=== PATIENT | female | born 1950 | race American Indian/Alaskan Native ===

== ENCOUNTER 2016-12-09 06:03 | Day surgery (SDC) | payer MEDICARE ==
[~2016-12-09 06:03] MED LIST: ANCEF/STERILE WATER 2 GM/20 ML 2 GM/20 ML SYRINGE IV NR; NACL 0.9% 1000 ML 1,000 ML IV SCH; PEPCID PO NR
--- NOTE | 2016-12-09 06:57 | Anesthesia Consultation ---
Anesthesia Consult and Med Hx Date of service: 12/09/16 - Airway Anesthetic Teeth Evaluation: Edentulous ROM Head & Neck: Adequate Mental/Hyoid Distance: Adequate Mallampati Class: Class II Intubation Access Assessment: Probably Good - Pulmonary Exam CTA: Yes - Cardiac Exam Cardiac Exam: RRR - Pre-Operative Health Status ASA Pre-Surgery Classification: ASA3 Proposed Anesthetic Plan: MAC - Pulmonary Hx Smoking: Yes (1-2 PPD FROM 1969 NOW SINCE 1-2 CIG/DAY FORLAST 3YRS) Hx Asthma: No Hx Pneumonia: No Hx Sleep Apnea: No - Cardiovascular System Hx Hypertension: Yes (20+ YRS) - Central Nervous System Hx Seizures: No CVA: No Hx Psychiatric Problems: No - Endocrine Hx Renal Disease: Yes (CKD, dialysis via vas cath) Hx End Stage Renal Disease: Yes Hx Insulin Dependent Diabetes: Yes Hx Non-Insulin Dependent Diabetes: Yes - Hematic Hx Anemia: Yes - Other Systems Hx Cancer: Yes (endometrial)
--- NOTE | 2016-12-09 06:59 | Anesthesia Day of Surgery ---
Anesthesia Day of Surgery - Day of Surgery Patient Examined: Yes Patient H&P Reviewed: Yes Patient is NPO: Yes Beta Blockers: No Cardiac Clearance: No Pulmonary Clearance: No
[2016-12-09 07:17] LABS: Basophils % (Auto) 0.6 % (0.0-1.8); Eosinophils % (Auto) 1.8 % (0.0-4.3); Hematocrit 31.3 % (30.3-42.9); Hemoglobin 9.9 gm/dl (10.1-14.3); Mean Corpuscular HGB Conc 32 % (30-34); Mean Corpuscular Hemoglobin 30 pg (28-32); Mean Corpuscular Volume 94 fl (79-97); Platelet Count 159 K/mm3 (140-440); Red Blood Count 3.35 M/mm3 (3.65-5.03); Red Cell Distribution Width 15.9 % (13.2-15.2); White Blood Count 8.2 K/mm3 (4.5-11.0)
[2016-12-09] MEDS ORDERED: MARCAINE 0.5% INFILTRATI ONE ×2 (07:17→09:31)
[2016-12-09] MEDS ORDERED: HEPARIN 10,000 UNITS/10 ML ONE (07:17)
[2016-12-09] MEDS ORDERED: NACL 0.9% 500 ML 500 ML ONE (07:21)
[2016-12-09] MEDS ORDERED: XYLOCAINE 1%/ EPI 1:100,000 INFILTRATI ONE (07:21)
[2016-12-09 07:30] LABS: BUN/Creatinine Ratio 7.66; Chloride 105.9 mmol/L (98-107); Potassium 5.2 mmol/L (3.6-5.0)
[2016-12-09 07:32] LABS: INR 1.05 (0.87-1.13)
[2016-12-09] MEDS ORDERED: DIPRIVAN 10 MG/ML IV ONE (07:41)
[2016-12-09] MEDS ORDERED: XYLOCAINE MPF 2% ONE (07:41)
[2016-12-09] MEDS ORDERED: SUBLIMAZE ONE ×2 (07:41→09:16)
[2016-12-09] MEDS ORDERED: ePHEDrine SULFATE ONE (08:39)
[2016-12-09] MEDS ORDERED: HEPARIN 10,000 UNITS/10 ML 2,000 UNIT in NACL 0.9% 500 ML 500 ML IR ONE (09:32)
[2016-12-09] MEDS ORDERED: ZOFRAN ONE (09:36)
--- NOTE | 2016-12-09 09:48 | Short Stay Summary ---
Short Stay Documentation Date of service: 12/09/16 Narrative H&P: See H&P - History H&P: obtained from office - Allergies and Medications Current Medications: Allergies No Known Allergies Allergy (Verified 11/28/16 16:27) Home Medications Medication Instructions Recorded Confirmed Last Taken Type Amiodarone [Cordarone 200 MG TAB] 200 mg PO QDAY 11/28/16 12/09/16 12/08/16 08: 00 History Calcium Acetate [Phoslo] 1,334 mg PO TIDWM 11/28/16 12/09/16 12/08/16 08:00 History Insulin Glargine,Hum.rec.anlog 20 units SQ QHS 11/28/16 12/09/16 12/08/16 08:00 History [Toujeo Solostar] 20 UNITS Losartan [Cozaar] 25 mg PO QDAY 11/28/16 12/09/16 12/09/16 05:15 History Memantine HCl [Namenda] 10 mg PO QDAY 11/28/16 12/09/16 12/08/16 08:00 History Pregabalin [Lyrica] 100 mg PO QDAY 11/28/16 12/09/16 12/02/16 History Quetiapine Fumarate [SEROquel] 50 mg PO HS 11/28/16 12/09/16 12/08/16 08:00 History Valsartan/Hydrochlorothiazide 1 each PO QDAY 11/28/16 12/09/16 12/08/16 08:00 History [Valsartan-Hctz 320-12.5 mg Tab] Active Medications Famotidine (Pepcid) 20 mg PO PREOP NR Stop: 12/09/16 23:59 Last Admin: 12/09/16 07:13 Dose: 20 mg Fentanyl (Sublimaze) 50 mcg IV Q5MIN PRN PRN Reason: Pain , Severe (7-10) Stop: 12/12/16 16:00 Cefazolin Sodium (Ancef/Sterile Water 2 Gm/20 Ml) 2 gm in 20 mls @ 80 mls/hr IV PREOP NR PRN Reason: Protocol Stop: 12/09/16 23:59 Sodium Chloride (Nacl 0.9% 1000 Ml) 1,000 mls @ 42 mls/hr IV DIRECT NICA Last Admin: 12/09/16 07:00 Dose: 42 mls/hr - Brief post op/procedure progress note Date of procedure: 12/09/16 Pre-op diagnosis: End-Stage Renal Disease Post-op diagnosis: same Procedure: Creation of Left Brachiocephalic Arteriovenous Fistula Anesthesia: DEVYN Surgeon: MACHELLE UREÑA Estimated blood loss: minimal Pathology: none Condition: stable - Disposition Condition at discharge: Good Disposition: DISCHARGED TO HOME OR SELFCARE Short Stay Discharge Plan Activity: other (no heavy lifting with left and left arm) Wound: open to air, other (okay to wash the wound with soap and water but do not soak in water) Follow up with: MACHELLE UREÑA MD [Staff Physician] - 14 Days Prescriptions: HYDROcodone/APAP 7.5-325 [[place] 7.5/325] 1 each PO Q6HR PRN #50 tablet PRN Reason: Pain
--- NOTE | 2016-12-09 09:49 | Operative Report ---
Operative Report Operative Report: Date of procedure: 12/09/2016 Pre-operative diagnosis: End-Stage Renal Disease Post-operative diagnosis: End-Stage Renal Disease Procedure(s): Creation of Left Brachial Artery to Cephalic Vein Arteriovenous Fistula Surgeon: Goyo Ramirez MD Horse Exerciser: None Anesthesia: LMA EBL: Minimal Counts: Correct Complications: None Condition: Stable Findings: Successful correction of left brachiocephalic arteriovenous fistula probably thorough and palpable radial pulse at the end of the case. Specimen: None Indications: The patient is a 66-year-old female with history of end-stage renal disease currently on hemodialysis through a right internal jugular permacath. She is in need of long-term access was found to be a suitable candidate for creation of a fistula. She was given the risks, benefits, and alternative procedures and consented to the procedure. Description of Procedure: The patient was brought to the operating room and laid in supine position after general endotracheal anesthesia was administered the patient was prepped and draped in normal sterile fashion. After anesthetizing the skin a transverse incision was created just below the antecubital crease. Dissection was carried down to the the cephalic vein using sharp dissection. The vein was dissected out both proximally and distally and suture ligated and divided distally. I then ran a 3 Nelsy proximally in the vein, to ensure patency of the vein. Then flushed the vein with heparinized saline and flow was controlled with a bulldog clamp. I then dissected out the brachial artery through this incision circumferentially both proximal and distal and controlled the artery with vessel loops. I then placed the vessel loops on tension controlling the flow through the artery and created an arteriotomy using an 11 blade and Younger scissors. I created an end to side anastomosis between the cephalic vein and brachial artery using a 6-0 Prolene in running fashion. Prior to completing the anastomosis I flushed the artery both proximally and distally and then advanced a 3 Nelsy proximally to break the spasm in the artery. I then completed the anastomosis and removed all vessel loops allowing flow into the fistula which had an excellent thrill. I achieved hemostasis with a combination of direct pressure and electrocautery. Once hemostasis was achieved I anesthetized the wound with Marcaine. I then closed the wound in 2 layers and 3-0 Vicryl in a running fashion to close the deep dermal layer and 4- 0 Monocryl in a running fashion in the subcuticular layer. I dressed the wound with Surgicel. The patient tolerated the procedure well, all sponge needle and instrument counts were correct. The patient was taken to recovery in stable condition.
--- NOTE | 2016-12-09 09:57 | Post Anesthesia Evaluation ---
- Post Anesthesia Evaluation Patient Participated: No Airway Patent: Yes Stable Respiratory Function: Yes Nausea/Vomiting: No Temp > 96.8F: Yes Pain Manageable: Yes Adequeate Hydration: Yes Anesthesia Complications: No Block Receding Appropriately: Not Applicable Patient on Ventilator: No
[2016-12-09] MEDS: SUBLIMAZE IV PRN ×2 (10:10→11:00)
[2016-12-09] MEDS ORDERED: DILAUDID IV PRN (10:13)
[2016-12-09] MEDS ORDERED: HEPARIN IV NR ×2 (12:00→13:00)
[2016-12-09] MEDS ORDERED: NORCO 5/325 PO PRN (12:03)
[2016-12-09 13:51] VITALS: BP 140/57
== END 2016-12-09 14:23 | disposition home or self-care (01) ==
LOC: OR 06:03
PROVIDERS: ATTEND Surgery Vascular Surgery
DX: E11.22 Type 2 diabetes mellitus with diabetic chronic kidney disease (principal); I12.0 Hypertensive chronic kidney disease with stage 5 chronic kidney disease or end stage renal disease; N18.6 End stage renal disease; F17.210 Nicotine dependence, cigarettes, uncomplicated; D64.9 Anemia, unspecified; Z85.42 Personal history of malignant neoplasm of other parts of uterus; Z99.2 Dependence on renal dialysis; Z90.710 Acquired absence of both cervix and uterus; Z98.890 Other specified postprocedural states; Z79.899 Other long term (current) drug therapy; Z79.4 Long term (current) use of insulin; Z83.3 Family history of diabetes mellitus
CPT/HCPCS: 36415; 36818; 80048; 82962; 85025; 85610; C1757; J0690; J1644; J2405; J2704; J3010; J7030; J7040

== ENCOUNTER 2017-01-06 07:27 | Day surgery (SDC) | payer MEDICARE ==
--- NOTE | 2017-01-03 08:25 | Admit Criteria Form ---
Admission Criteria Documentation: AMBULATORY SURGERY EXCEPTION CRITERIA Ambulatory Surgery Exception Criteria ( Place 'X' for any and all applicable criteria): Surgery or procedure performed on ambulatory basis may require inpatient stay for[A] ANY ONE of the following(1)(2)(3)(4)(5)(6)(7)(8)(9): [X] I. A preoperative situation, condition, or finding that warrants inpatient stay as indicated by ANY ONE of the following: [] a) Inpatient care needed because of severity of a disease or condition rather than the surgery (eg, severe cardiac or respiratory disease, severe infection) (15) (16 ) (17) (18) [] b) Emergent procedure (eg, angioplasty for acute ischemia)(19) [] c) Complex surgical approach or situation as indicated by ANY ONE of the following(3): [] i) Open approach needed instead of usual endoscopic, transcatheter, or other less invasive procedure [] ii) Difficult approach because of previous operation [] iii) Airway monitoring required after open neck procedures(20)(21) [] iv) Large mass requiring unusually extensive dissection [] v) Additional complicating feature requiring inpatient care (eg, drain management)(22(23): [X] d) Major surgery in a pt with high anesthetic risk as indicated by ANY ONE of the following (2)(3)(5)(7)(8): [X] i) ASA risk class III or higher (severe systemic disease impairing function) [D] [] ii) Advanced age (eg, older than 85 years)(14)(24) [] iii) Symptomatic heart failure(25) [] iv) Symptomatic asthma or COPD(8)(21) [] v) Morbid obesity with hemodynamic or respiratory problems(20)( 21)(26)(27) [] vi) Obstructive sleep apnea(20)(21) [] vii) Former premature infants who are younger than 60 weeks [] viii) High risk for severe postoperative abnormalities (eg, severe postoperative hypocalcemia after parathyroidectomy for severe hyperparathyroidism)(27)( 28) [] ix) Unstable angina(25) [] e) Drug-related risk requiring inpatient stay as indicated by ANY ONE of the following(5)(10)(14)(32)(33) [] i) Procedure requires discontinuing drugs or other therapy (eg , antiarrhythmic medication, antiseizure medication), which necessitates inpatient observation or treatment.(18)(31) [] ii) Major surgery and high risk drug use as indicated by ANY ONE of the following: [] 1) Active abuse of cocaine or similar drug [] 2) Monoamine oxidase inhibitor use [] 3) Other drug identified as posing risk [] f) Inadequate outpatient care situation as indicated by ANY ONE of the following(5)(10)(14)(32)(33) [] i) Patient lives remote from medical facility and procedure has urgent complication potential, and temporary nearby residence cannot be arranged [] ii) Patient will have postprocedure incapacitation and inadequate assistance at home, or alternative level of care cannot be arranged. [] iii) Patient will have long general anesthesia or procedure side effect resolution time, and competent person to stay with patient on first postoperative night at home or alternative level of care cannot be arranged. []iv) Other inadequate outpatient situation that cannot be handled by other means [] II. A perioperative event, condition, or finding that warrants inpatient stay as indicated by ANY ONE of the following (1)(2)(3): [] a) Inadequate physiologic recovery: cardiovascular, respiratory, or hemodynamic status not normal or near preoperative baseline(18) [] b) Hemodynamic instability [] c) Patient not alert with near normal or baseline mental status [] d) Temperature not normal or as expected and not appropriate for outpatient treatment of condition [] e) Ambulatory or appropriate activity level status not yet achieved post procedure [E](34)(35)(36) [] f) Operative site not appropriate (eg, unexpected or excessive drainage or bleeding) [] g) Postoperative effects not resolved or adequately managed (eg, significant pain or vomiting not appropriate for outpatient or next level of care)(10)(12) [] h) Complicating features requiring inpatient care as indicated by ANY ONE of the following(37): [] i) Severe complications of procedure (eg, bowel injury, airway compromise, vascular injury,severe hemorrhage) [] ii) Extensive (eg, dissection far beyond usual scope of procedure ) or prolonged (eg, 120 minutes beyond usual) surgery needed requiring inpatient postoperative care [] iii) Conversion to an open or complex procedure that requires inpatient care (eg, open vs laparoscopic cholecystectomy, abdominal vs vaginal hysterectomy)(38) [] iv) Comorbid condition or test result identified during or post procedure that requires inpatient care (7) [] v) Malignant hyperthermia(30) [] vi) Other complicating feature requiring inpatient care(22)(23) Inpatient stay may be needed until ALL of the following are present (1)(2)(3)(4) (5)(6)(10)(14)(33)(40): []a) Physiologic recovery: cardiovascular, respiratory, and hemodynamic status normal or near preoperative baseline []b) Hemodynamic stability []c) Patient alert, with near normal or baseline mental status []d) Temperature appropriate: patient afebrile or temperature appropriate for outpt treatment of condition []e) Activity level appropriate: ambulatory or appropriate activity level post procedure []f) Operative site appropriate as indicated by ALL of the following: []i) Site dry or with expected drainage []ii) Any blood noted is as expected for procedure. []g) Postoperative effects resolved or managed as indicated by ALL of the following: []i) Pain management appropriate for outpatient (or next level of) care(10) []ii) Minimal nausea and vomiting: if present, successfully treated with oral medication(12) []iii) Headache, dizziness, or drowsiness (if present) are mild. []h) Voiding status acceptable as indicated by ANY ONE of the following: []i) Voiding spontaneously []ii) No voiding but instructions given for follow-up in 6 to 8 hours []iii) Urinary catheter in place, and instructions given for follow-up []i) Complicating features requiring inpatient care manageable at a lower level of care(37) []j) Comorbid conditions manageable at a lower level of care(37) The original [employer] content created by [employer] has been revised. The portions of the content which have been revised are identified through the use of italic text or in bold, and [employer] has neither reviewed nor approved the modified material. All other unmodified content is copyright [employer]. Please see references footnoted in the original [employer] edition 2016
[~2017-01-06 07:27] MED LIST changes: +HEPARIN 10,000 UNITS/10 ML ONE; +MARCAINE 0.5% INFILTRATI ONE; +NACL 0.9% 500 ML 500 ML ONE; +NITROGLYCERIN SYRINGE 0 ML ONE; +VERSED IV NR; +XYLOCAINE 1%/ EPI 1:100,000 INFILTRATI ONE
[2017-01-06] MEDS ORDERED: SODIUM BICARBONATE ONE (08:38)
[2017-01-06] MEDS ORDERED: ZOFRAN IV PRN (09:22)
[2017-01-06] MEDS ORDERED: DILAUDID IV PRN (09:22)
--- NOTE | 2017-01-06 09:22 | Anesthesia Day of Surgery ---
Anesthesia Day of Surgery - Day of Surgery Patient Examined: Yes Patient H&P Reviewed: Yes Patient is NPO: Yes
--- NOTE | 2017-01-06 09:22 | Anesthesia Consultation ---
Anesthesia Consult and Med Hx Date of service: 01/06/17 - Airway Anesthetic Teeth Evaluation: Good ROM Head & Neck: Adequate Mental/Hyoid Distance: Adequate Mallampati Class: Class II Intubation Access Assessment: Probably Good - Pulmonary Exam CTA: Yes - Cardiac Exam Cardiac Exam: RRR - Pre-Operative Health Status ASA Pre-Surgery Classification: ASA3 Proposed Anesthetic Plan: General - Pulmonary Hx Smoking: Yes (1-2 PPD FROM 1969 NOW SINCE 1-2 CIG/DAY FORLAST 3YRS) Hx Pneumonia: No - Cardiovascular System Hx Hypertension: Yes (20+ YRS) Hx Cardia Arrhythmia: Yes - Central Nervous System Hx Seizures: No CVA: No Hx Psychiatric Problems: No - Endocrine Hx Renal Disease: Yes (ESRD, dialysis via vas cath) Hx End Stage Renal Disease: Yes Hx Insulin Dependent Diabetes: Yes - Hematic Hx Anemia: Yes - Other Systems Hx Cancer: Yes (RIGHT BREAST) Hx Obesity: Yes - Additional Comments Anesthesia Medical History Comments: HAD GENERAL ANESTEHSIA 11/2016, LMA #4 USED.
[2017-01-06] MEDS ORDERED: MARCAINE 0.5% 30 ML INFILTRATI ONE (10:17)
[2017-01-06] MEDS ORDERED: DIPRIVAN 10 MG/ML IV ONE (10:20)
[2017-01-06] MEDS ORDERED: SUBLIMAZE ONE (10:20)
[2017-01-06] MEDS ORDERED: XYLOCAINE MPF 2% ONE (10:23)
[2017-01-06] MEDS ORDERED: NEO SYNEPHRINE ONE (11:11)
[2017-01-06] MEDS ORDERED: NACL 0.9% 100 ML ONE (11:11)
[2017-01-06] MEDS ORDERED: NACL P/F VIAL (10 ML) 10 ML ONE (11:15)
[2017-01-06] MEDS ORDERED: RIFADIN ONE (11:15)
[2017-01-06] MEDS ORDERED: ROBINUL ONE (11:28)
[2017-01-06] MEDS ORDERED: MARCAINE 0.5% INFILTRATI ONE (11:30)
[2017-01-06] MEDS ORDERED: RIFADIN 600 MG in NACL 0.9% 50 ML IR ONE (11:30)
[2017-01-06] MEDS ORDERED: NACL 0.9% IR ONE (11:30)
[2017-01-06] MEDS ORDERED: HEPARIN 10,000 UNITS/10 ML 2,000 UNIT in NACL 0.9% 500 ML 500 ML IR ONE (11:30)
--- NOTE | 2017-01-06 12:30 | Short Stay Summary ---
Short Stay Documentation Date of service: 01/06/17 Narrative H&P: See H&P - History H&P: obtained from office - Allergies and Medications Current Medications: Allergies No Known Allergies Allergy (Verified 11/28/16 16:27) Home Medications Medication Instructions Recorded Confirmed Last Taken Type Amiodarone [Cordarone 200 MG TAB] 200 mg PO QDAY 11/28/16 12/31/16 01/05/17 History Calcium Acetate [Phoslo] 1,334 mg PO TIDWM 11/28/16 12/31/16 01/05/17 History Insulin Glargine,Hum.rec.anlog 20 units SQ QHS 11/28/16 12/31/16 01/05/17 History [Toujeo Solostar] Losartan [Cozaar] 25 mg PO QDAY 11/28/16 01/06/17 01/06/17 06:30 History Memantine HCl [Namenda] 10 mg PO QDAY 11/28/16 12/31/16 01/05/17 History Pregabalin [Lyrica] 100 mg PO QDAY 11/28/16 12/31/16 01/05/17 History Quetiapine Fumarate [SEROquel] 50 mg PO HS 11/28/16 12/31/16 01/05/17 History Valsartan/Hydrochlorothiazide 1 each PO QDAY 11/28/16 12/31/16 01/05/17 History [Valsartan-Hctz 320-12.5 mg Tab] HYDROcodone/APAP 7.5-325 [[place] 1 each PO Q6HR PRN #50 tablet 12/09/16 12/31/16 01/05/17 Rx 7.5/325] Active Medications Famotidine (Pepcid) 20 mg PO PREOP NR Stop: 01/06/17 23:45 Last Admin: 01/06/17 09:50 Dose: 20 mg Hydromorphone HCl (Dilaudid) 0.25 mg IV Q10MIN PRN PRN Reason: Pain, Moderate (4-6) Stop: 01/06/17 18:00 Cefazolin Sodium (Ancef/Sterile Water 2 Gm/20 Ml) 2 gm in 20 mls @ 80 mls/hr IV PREOP NR PRN Reason: Protocol Stop: 01/06/17 23:01 Sodium Chloride (Nacl 0.9% 1000 Ml) 1,000 mls @ 42 mls/hr IV DIRECT NICA Last Admin: 01/06/17 09:30 Dose: 42 mls/hr Ondansetron HCl (Zofran) 4 mg IV ONCE PRN PRN Reason: Nausea And Vomiting Stop: 01/06/17 16:00 - Brief post op/procedure progress note Date of procedure: 01/06/17 Pre-op diagnosis: End-Stage Renal Disease Post-op diagnosis: same Procedure: Creation of left brachial artery axillary vein AV graft with 5 mm bovine graft Anesthesia: DEVYN Surgeon: MACHELLE UREÑA Estimated blood loss: minimal Pathology: none Condition: stable - Disposition Condition at discharge: Good Disposition: DISCHARGED TO HOME OR SELFCARE Short Stay Discharge Plan Activity: other (no heavy lifting with left arm) Wound: open to air, keep clean and dry, other (okay to wash the wound with soap and water but do not soak in water) Follow up with: MACHELLE UREAÑ MD [Staff Physician] - 14 Days Prescriptions: HYDROcodone/APAP 7.5-325 [[place] 7.5/325] 1 each PO Q6HR PRN #50 tablet PRN Reason: Pain
--- NOTE | 2017-01-06 12:31 | Operative Report ---
Operative Report Operative Report: Date of procedure: 01/06/2017 Pre-operative diagnosis: End-Stage Renal Disease Post-operative diagnosis: Same Procedure(s): 1. Creation of Left Brachial Artery to Axillary Vein AV Graft with 5 mm Bovine Graft Surgeon: Goyo Ramirez MD Windows Software Engineer: None Anesthesia: General Endotracheal Anesthesia EBL: Minimal Counts: Correct Complications: None Condition: Stable Findings: Successful Creation of Left Arm AV Graft Specimen: None Indication: The patient is a 66-year-old female currently on hemodialysis through right internal jugular permacath. She had creation of an AV fistula in her left arm over this fills from left creation. She is in need of long-term access and is felt that she would benefit from creation of a graft. She was given the risk, benefits, and alternative procedures and consented to procedure. Description of Procedure: The patient was brought to the operating room and laid in supine position after general endotracheal anesthesia was achieved the left arm was prepped and draped in normal sterile fashion. A longitudinal incision was made on the medial aspect of the arm just proximal to the antecubital crease and carried down to the brachial artery using sharp dissection. The brachial artery was dissected out circumferentially both proximally and distally and controlled with vessel loops. A second incision was created in longitudinal fashion on the medial aspect of the arm just distal to the axillary crease and carried down to the axillary vein using sharp dissection. Axillary vein was dissected out circumferentially and controlled with a vessel loop. I then used a Gladis- Wick tunneler to tunnel from the brachial artery incision to the axillary vein incision and then put an 5 mm bovine through the tunnel. I infused with heparinized saline to ensure that it was not twisted or kinked. I put the brachial artery vessel loops on tension controlling the flow and then created an arteriotomy using an 11 blade and Younger scissors. I beveled the graft and created an end-to-side anastomosis using 6-0 Prolene running fashion. I clamped the graft just proximal to the anastomosis and then released the vessel loops restoring flow in the brachial artery. I placed quick clot in incision to achieve hemostasis. I cut the proximal end of the graft to the appropriate length and beveled the graft in preparation for a venous anastomosis. I controlled the axillary vein a Satinsky clamp and created a venotomy using an 11 blade and Younger scissors. I created an end to side anastomosis using a 6-0 Prolene in running fashion. Prior to completing the anastomosis I flushed the graft to ensure there was no thrombus and then completed the anastamosis. I released all clamps allowing flow into the AV graft which had an excellent thrill. I packed the wound with quick clot to achieve hemostasis. I anesthetized both wounds with Marcaine and then closed both wounds in 2 layers using 3-0 Vicryl in running fashion in the deep dermal layer and 4-0 Monocryl in running fashion the subcuticular layer. I dressed both wounds with Surgicel. The patient tolerated the procedure well all sponge needle and instrument counts were correct the patient was taken to recovery in stable condition.
[2017-01-06] MEDS ORDERED: HEPARIN IV ONE (15:30)
--- NOTE | 2017-01-06 16:43 | Post Anesthesia Evaluation ---
- Post Anesthesia Evaluation Patient Participated: Yes Airway Patent: Yes Stable Respiratory Function: Yes Nausea/Vomiting: No Temp > 96.8F: Yes Pain Manageable: Yes Adequeate Hydration: Yes Anesthesia Complications: No Block Receding Appropriately: Not Applicable Patient on Ventilator: No
[2017-01-06 16:49] VITALS: BP 127/53
== END 2017-01-06 16:30 | disposition home or self-care (01) ==
LOC: OR 07:27
PROVIDERS: ATTEND Surgery Vascular Surgery
DX: E11.22 Type 2 diabetes mellitus with diabetic chronic kidney disease (principal); I12.0 Hypertensive chronic kidney disease with stage 5 chronic kidney disease or end stage renal disease; N18.6 End stage renal disease; F17.210 Nicotine dependence, cigarettes, uncomplicated; D64.9 Anemia, unspecified; E66.9 Obesity, unspecified; Z68.31 Body mass index [BMI] 31.0-31.9, adult; Z90.710 Acquired absence of both cervix and uterus; Z98.890 Other specified postprocedural states; Z79.899 Other long term (current) drug therapy; Z82.49 Family history of ischemic heart disease and other diseases of the circulatory system
CPT/HCPCS: 36415; 36830; 82962; 84132; C1768; J0690; J1644; J2370; J2704; J3010; J3490; J7030; J7040

== ENCOUNTER 2017-11-16 14:41 | Inpatient (IN) | payer MEDICARE ==
[2017-11-16] MEDS ORDERED: GEODON IM ONE (16:46)
--- NOTE | 2017-11-16 16:55 | Emergency Department Report ---
ED General Adult HPI - General Chief complaint: Weakness Stated complaint: MISSED 2 TX OF DIALYSIS Time Seen by Provider: 11/16/17 16:41 Source: EMS, old records reviewed Mode of arrival: Stretcher Limitations: No Limitations - History of Present Illness Initial comments: Patient is 67 years old female residential patient, history of advanced dementia, end-stage renal disease on hemodialysis and diabetes patient presented via EMS for altered mental status combative with nursing staff, patient did not complete her dialysis for the last 2 sessions because of combativeness. Patient is combative in the ER ,refusing blood work and IV lines. She is not communicating but she is moving all extremities. Geodon 20 mg IM was given to chemically restrain the patient for management. - Related Data Home Medications Medication Instructions Recorded Confirmed Last Taken Insulin Glargine,Hum.rec.anlog 20 units SQ QHS 11/28/16 11/16/17 01/05/17 [Toujeo Solostar] Memantine HCl [Namenda] 10 mg PO QDAY 11/28/16 11/16/17 01/05/17 Quetiapine Fumarate [SEROquel] 100 mg PO HS 11/28/16 11/16/17 01/05/17 Aspirin EC [Aspirin Enteric Coated 81 mg PO QDAY 11/16/17 11/16/17 Unknown TAB] Calcitriol [Rocaltrol] 0.5 mcg PO QDAY 11/16/17 11/16/17 Unknown LORazepam [Ativan] 1 mg PO Q4H PRN 11/16/17 11/16/17 Unknown Lispro Insulin [Humalog] 100 unit SQ ACHS 11/16/17 11/16/17 Unknown Allergies Allergy/AdvReac Type Severity Reaction Status Date / Time No Known Allergies Allergy Verified 11/28/16 16:27 ED Review of Systems ROS: Stated complaint: MISSED 2 TX OF DIALYSIS Other details as noted in HPI Comment: Unobtainable due to pts medical conditions ED Past Medical Hx - Past Medical History Hx Hypertension: Yes (20+ YRS) Hx Diabetes: Yes (20 YRS) Hx Renal Disease: Yes (ESRD, dialysis via vas cath) Hx Seizures: No Hx Dementia: Yes Hx HIV: No - Social History Smoking Status: Unknown if ever smoked Substance Use Type: None - Medications Home Medications: Home Medications Medication Instructions Recorded Confirmed Last Taken Type Insulin Glargine,Hum.rec.anlog 20 units SQ QHS 11/28/16 11/16/17 01/05/17 History [Toubelao Solostar] Memantine HCl [Namenda] 10 mg PO QDAY 11/28/16 11/16/17 01/05/17 History Quetiapine Fumarate [SEROquel] 100 mg PO HS 11/28/16 11/16/17 01/05/17 History Aspirin EC [Aspirin Enteric Coated 81 mg PO QDAY 11/16/17 11/16/17 Unknown History TAB] Calcitriol [Rocaltrol] 0.5 mcg PO QDAY 11/16/17 11/16/17 Unknown History LORazepam [Ativan] 1 mg PO Q4H PRN 11/16/17 11/16/17 Unknown History Lispro Insulin [Humalog] 100 unit SQ ACHS 11/16/17 11/16/17 Unknown History ED Physical Exam - General Limitations: No Limitations General appearance: alert, anxious, other (agitated) - Head Head exam: Present: atraumatic, normocephalic - Eye Eye exam: Present: normal appearance, PERRL - ENT ENT exam: Present: normal exam, normal orophraynx, mucous membranes moist - Neck Neck exam: Present: normal inspection, full ROM. Absent: tenderness, meningismus, lymphadenopathy, thyromegaly - Respiratory Respiratory exam: Present: normal lung sounds bilaterally. Absent: respiratory distress, wheezes, rales, rhonchi, accessory muscle use, decreased breath sounds , prolonged expiratory - Cardiovascular Cardiovascular Exam: Present: regular rate, normal rhythm, normal heart sounds - GI/Abdominal GI/Abdominal exam: Present: soft, normal bowel sounds. Absent: distended, tenderness, guarding, rebound, rigid, organomegaly, mass, bruit, pulsatile mass , hernia - Extremities Exam Extremities exam: Present: normal inspection, full ROM, normal capillary refill - Back Exam Back exam: Present: normal inspection, full ROM. Absent: CVA tenderness (L) - Neurological Exam Neurological exam: Present: alert, altered - Psychiatric Psychiatric exam: Present: agitated - Skin Skin exam: Present: warm, intact, normal color ED Course Vital Signs 11/16/17 11/16/17 11/16/17 14:58 15:00 15:18 Temperature 97.7 F Pulse Rate 92 H 88 87 Respiratory 14 13 12 Rate Blood Pressure 155/65 155/65 O2 Sat by Pulse 100 100 100 Oximetry 11/16/17 11/16/17 11/16/17 15:30 16:00 16:05 Temperature 97.7 F Pulse Rate 89 96 H 95 H Respiratory 11 L 17 15 Rate Blood Pressure 183/117 183/117 O2 Sat by Pulse 100 90 100 Oximetry 11/16/17 11/16/17 11/16/17 16:30 17:00 17:30 Temperature Pulse Rate 94 H 109 H 97 H Respiratory 18 25 H 13 Rate Blood Pressure 183/117 183/117 183/117 O2 Sat by Pulse 99 91 99 Oximetry 11/16/17 11/16/17 11/16/17 18:20 18:31 19:01 Temperature Pulse Rate 94 H 101 H 108 H Respiratory 12 16 25 H Rate Blood Pressure 183/117 183/117 183/117 O2 Sat by Pulse 99 96 98 Oximetry 11/16/17 11/16/17 11/16/17 19:31 20:01 20:30 Temperature Pulse Rate 95 H 95 H 95 H Respiratory 13 14 14 Rate Blood Pressure 183/117 183/117 156/80 O2 Sat by Pulse 96 97 97 Oximetry 11/16/17 11/16/17 11/16/17 21:01 21:30 22:20 Temperature Pulse Rate 107 H 97 H 100 H Respiratory 24 15 Rate Blood Pressure 179/90 180/80 180/80 O2 Sat by Pulse 96 98 Oximetry 11/16/17 11/16/17 11/16/17 22:30 23:00 23:30 Temperature Pulse Rate 95 H 89 97 H Respiratory 16 14 13 Rate Blood Pressure 180/80 142/60 142/60 O2 Sat by Pulse 98 Oximetry 11/17/17 11/17/17 00:00 00:03 Temperature Pulse Rate 86 Respiratory 16 12 Rate Blood Pressure 142/60 O2 Sat by Pulse 98 Oximetry ED Medical Decision Making - Lab Data Result diagrams: 11/16/17 19:28 11/16/17 19:28 - Medical Decision Making I discussed the patient with Dr Lee, I presented the patient to him, he agreed to admit the patient to his service. Critical care attestation.: If time is entered above; I have spent that time in minutes in the direct care of this critically ill patient, excluding procedure time. ED Disposition Clinical Impression: Altered mental status, Combative behavior, Pneumonia Disposition: [id number] OP ADMIT IP TO THIS HOSP Is pt being admited?: Yes Condition: Stable
--- NOTE | 2017-11-16 18:31 | XRay Report ---
FINAL REPORT PROCEDURE: XR CHEST 1V AP TECHNIQUE: Chest radiograph anteroposterior view. CPT 31343 HISTORY: weakness COMPARISON: No prior studies are available for comparison. FINDINGS: Heart: Mild cardiomegaly. Mediastinum/Vessels: Normal. Lungs/Pleural space: Evaluation of the lungs is limited due to suboptimal inspiration. Left lower lung is obscured by the cardiac shadow. Right lung and bilateral pleural spaces are clear... Bony thorax: No acute osseous abnormality. Life support devices: A left-sided chest port is noted with catheter terminating at the level of proximal superior vena cava. A right jugular dual-lumen catheter is noted terminating at the level of right atrium.. IMPRESSION: Left lower lung is obscured by cardiac shadow. Any underlying infiltrates cannot be excluded. A two view chest study is recommended whenever the patient's condition permits. Mild cardiomegaly.
[2017-11-16] MEDS ORDERED: ATIVAN ONE ×2 (19:02→21:16)
[2017-11-16 20:00] LABS: Albumin 3.1 g/dL (3.9-5); Calcium 8.8 mg/dL (8.4-10.2)
[2017-11-16 20:13] LABS: Basophils # (Auto) 0.1 K/mm3 (0.0-0.1); Basophils % (Auto) 0.5 % (0.0-1.8); Eosinophils # (Auto) 0.4 K/mm3 (0.0-0.4); Eosinophils % (Auto) 3.3 % (0.0-4.3); Hemoglobin 9.8 gm/dl (10.1-14.3); Lymphocytes # (Auto) 1.4 K/mm3 (1.2-5.4); Lymphocytes % (Auto) 10.5 % (13.4-35.0); Mean Corpuscular HGB Conc 31 % (30-34); Mean Corpuscular Hemoglobin 30 pg (28-32); Mean Corpuscular Volume 98 fl (79-97); Monocytes # (Auto) 0.9 K/mm3 (0.0-0.8); Monocytes % (Auto) 6.8 % (0.0-7.3); Platelet Count 238 K/mm3 (140-440); Red Blood Count 3.28 M/mm3 (3.65-5.03); Red Cell Distribution Width 16.8 % (13.2-15.2)
[2017-11-16] MEDS ORDERED: LEVAQUIN 500MG/100ML 500 MG/100 ML BAG IV ONE (20:42)
[2017-11-16] MEDS ORDERED: ATIVAN IV ONE (21:49)
[2017-11-16] MEDS ORDERED: TYLENOL PO PRN (22:15)
[2017-11-16] MEDS ORDERED: ZOFRAN IV PRN (22:16)
--- NOTE | 2017-11-16 23:03 | Cat Scan Report ---
FINAL REPORT EXAM: CT HEAD/BRAIN WO CON HISTORY: AMS TECHNIQUE: Standard unenhanced CT of the head at 5.0 millimeter axial increments. PRIORS: None. FINDINGS: The ventricular system is normal in size and configuration. There is mild cerebral atrophy. There is no evidence for mass lesion, mass effect, midline shift, acute intracranial hemorrhage, or acute ischemia/ infarction. Visualized paranasal sinuses are clear. IMPRESSION: Mild atrophy. No acute intracranial process noted.
[2017-11-16] MEDS ORDERED: D50W (25GM) Syringe IV PRN (23:38)
--- NOTE | 2017-11-17 01:10 | History and Physical Report ---
CHIEF COMPLAINT: Change in mental status. HISTORY OF PRESENT ILLNESS: The patient is a 67-year-old female brought from the group home after he was found to be agitated, combative, and has change in mental status. longterm staff said that the patient has not been able to complete dialysis twise because of combativeness. There was no history of chest pain, no history of fever, nausea or vomiting or shortness of breath. PAST MEDICAL HISTORY: Pertinent for hypertension, diabetes mellitus, end-stage renal disease, on dialysis, and dementia. PAST SURGICAL HISTORY: Unremarkable. FAMILY HISTORY: Noncontributory. SOCIAL HISTORY: The patient stays at a group home. She does not smoke, does not drink alcohol and does not use illicit drugs. MEDICATIONS: The patient is on amiodarone 200 mg by mouth daily, calcium acetate or PhosLo 1334 mg by mouth 3 times daily, insulin Glargine along with Toujeo Solostar 20 units subcutaneously every night, losartan 25 mg by mouth daily, memantine hydrochloride or Namenda 10 mg by mouth daily, Lyrica 100 mg by mouth daily, Seroquel 50 mg by mouth at bedtime, and valsartan/hydrochlorothiazide 320/12.5 mg 1 tablet by mouth daily. ALLERGIES: There are no known drug allergies. REVIEW OF SYSTEMS: CONSTITUTIONAL: There is no fever, no chills, no diaphoresis. HEENT: There is no headache or sore throat. CARDIOVASCULAR SYSTEM: There is no chest pain or orthopnea. RESPIRATORY SYSTEM: There is no shortness of breath or cough. GASTROINTESTINAL SYSTEM: There is no nausea, no vomiting. No abdominal pain, diarrhea or constipation. NEUROLOGICAL SYSTEM: Change in mental status noted, combativeness noted, weakness noted. No numbness, no dizziness. MUSCULOSKELETAL SYSTEM: There is no joint pain or swelling. DERMATOLOGICAL SYSTEM: There is no skin rash or itching. GENITOURINARY SYSTEM: There is no dysuria, hematuria, or flank pain. Rest of system review is normal. PHYSICAL EXAMINATION: GENERAL: At the time of the exam, the patient was to be lethargic but arousable due to sedation and not in acute distress. VITAL SIGNS: Showed normal temperature with pulse of 97, blood pressure 180/80, respiratory rate of 15, and O2 sat of 98% on room air. HEENT: Exam showed pupils to be equal, round and reactive to light and accommodation. Extraocular muscles are intact. NECK: Supple with no JVD or carotid bruit. CARDIOVASCULAR SYSTEM: Showed normal first and second heart sounds, with no gallops or murmurs. RESPIRATORY SYSTEM: Showed good air entry on both sides of the lungs with no abnormal breath sounds. GASTROINTESTINAL SYSTEM: Showed abdomen to be full, soft, nontender with no organomegaly or rigidity. Bowel sound is normal. NEUROLOGIC SYSTEM: Showed no focal deficit. MUSCULOSKELETAL SYSTEM: Showed no joint swelling or tenderness. DERMATOLOGICAL SYSTEM: Show no skin rash. GENITOURINARY: Showed costovertebral angle tenderness. PERTINENT LABORATORY AND IMAGING STUDIES: The patient had a chest x-ray done that shows left lower lung opacity covered by cardiac shadow and the radiologist say that any underlying infiltrates cannot be excluded and recommended a 2-view chest study to be done whenever the patient's condition permits. Lab results: The patient has CBC done with elevated white count of 13,400, low hemoglobin of 9.8 and normal hematocrit with elevated MCV of 98, and the patient's CBC differential shows elevated segmented neutrophil of 78.9. The patient's chemistry shows normal sodium and elevated potassium level of 5.6 with low CO2 of 18 with elevated BUN of 63 and elevated creatinine of 9.3 with low GFR of 5 consistent with end-stage renal disease, on dialysis. Rest of the chemistry is normal except for low albumin level of 3.1. DIAGNOSES: 1. Altered mental status. 2. Left lower lobe infiltrate, possibly pneumonia. 3. End-stage renal disease, on dialysis. PLAN: The patient will be admitted to medical floor, on telemetry and will have Nephrology consult with Dr. Taylor, who is the patient's cell cleaner for management of end-stage renal disease and for management of the left lower lobe infiltrate. The patient will be on IV ceftriaxone 1 gram every 24 hours and IV Zithromax 500 mg daily. The patient will also be on Tylenol 650 mg by mouth every 4 hours for fever and headache and will be on IV Ativan 1 mg every 4 hours as needed for agitation and combativeness. The patient will be on IV Zofran 4 mg every 8 hours as needed for nausea and vomiting. DVT prophylaxis will be through heparin 5000 units subcutaneously q.12 hours. The patient will be on oxygen via nasal cannula 2 liters per minute. Also the patient will be on Accu-Chek a.c. and at bedtime, followed by low-dose sliding scale using regular insulin dose coverage. The patient's diet will be consistent of carbohydrate diet and 2 grams sodium diet. The patient's home medications will be reconciled and started accordingly. JOB# [id number] OCN/LEONOR MTDD
[2017-11-17] MEDS: HumuLIN R SUB-Q SCH ×4 (09:09→23:03)
[2017-11-17] MEDS ORDERED: ROCEPHIN/NS 1 GM/50 ML 1 GM/50 ML BAG IV SCH (10:00)
[2017-11-17] MEDS: cefTRIAXone 1 GM in NACL 0.9% 20 ML IV SCH (10:10)
[2017-11-17] MEDS: HEPARIN SUB-Q SCH ×2 (10:10→22:30)
[2017-11-17] MEDS: ZITHROMAX 500 MG in NACL 0.9% 250ML 250 ML IV SCH (10:15)
--- NOTE | 2017-11-17 11:17 | Progress Note ---
<ZINA MURRAY - Last Filed: 11/17/17 13:18> Assessment and Plan Assessment and plan: Patient is 67 years old female senior living patient, history of advanced dementia, end-stage renal disease on hemodialysis and diabetes patient presented via EMS for altered mental status combative with nursing staff, patient did not complete her dialysis for the last 2 sessions because of combativeness. Acute metabolic encephalopathy Etiology likely secondary to sepsis Sepsis Likely due to pneumonia, continue IV antibiotics Pneumonia Continue IV antibiotics End-stage renal disease on hemodialysis Nephrology internet sales consultant Type 2 diabetes mellitus Accu-Cheks before meals and at bedtime, ADA diet and, check hemoglobin A1c, sliding-scale insulin Anemia of chronic disease Epogen with HD Hyperkalemia Repeat BMP today, should be corrected with hemodialysis Hypertension Blood pressure currently controlled, continue current regimen Moderate malnutrition Nutrition services consulted Psychosis Psych consulted DVT prophylaxis Heparin History Interval history: Patient seen and examined. She is very confused at this time. Labs and nursing notes reviewed Hospitalist Physical - Constitutional Vitals: Temp Pulse Resp BP Pulse Ox 97.8 F 81 19 107/90 96 11/17/17 08:13 11/17/17 08:13 11/17/17 08:13 11/17/17 08:13 11/17/17 08:13 General appearance: Present: no acute distress, well-nourished - EENT Eyes: Present: PERRL, EOM intact ENT: hearing intact, clear oral mucosa - Neck Neck: Present: supple, normal ROM - Respiratory Respiratory effort: normal Respiratory: bilateral: CTA - Cardiovascular Rhythm: regular Heart Sounds: Present: S1 & S2 - Extremities Extremities: no ischemia, No edema - Abdominal General gastrointestinal: soft, non-tender, non-distended - Integumentary Integumentary: Present: clear, warm, dry - Psychiatric Psychiatric: no appropriate mood/affect, cooperative, other (calm) - Neurologic Neurologic: CNII-XII intact, moves all extremities - Allied Health Allied health notes reviewed: nursing Results - Labs CBC & Chem 7: 11/16/17 19:28 11/16/17 19:28 Labs: Laboratory Last Values WBC 13.4 K/mm3 (4.5-11.0) H 11/16/17 19:28 RBC 3.28 M/mm3 (3.65-5.03) L 11/16/17 19:28 Hgb 9.8 gm/dl (10.1-14.3) L 11/16/17 19: Hct 32.0 % (30.3-42.9) 11/16/17 19: MCV 98 fl (79-97) H 11/16/17 19: MCH 30 pg (28-32) 11/16/17: MCHC 31 % (30-34) 11/16/17: RDW 16.8 % (13.2-15.2) H 11/16/17: Plt Count 238 K/mm3 (140-440) 11/16/17: Lymph % (Auto) 10.5 % (13.4-35.0) L 11/16/17: [place] % (Auto) 6.8 % (0.0-7.3) 11/16/17: Eos % (Auto) 3.3 % (0.0-4.3) 11/16/17: Baso % (Auto) 0.5 % (0.0-1.8) 11/16/17: Lymph # 1.4 K/mm3 (1.2-5.4) 11/16/17 19: [place] # 0.9 K/mm3 (0.0-0.8) H 11/16/17: Eos # 0.4 K/mm3 (0.0-0.4) 11/16/17: Baso # 0.1 K/mm3 (0.0-0.1) 11/16/17: Seg Neutrophils % 78.9 % (40.0-70.0) H 11/16/17 19: Seg Neutrophils # 10.6 K/mm3 (1.8-7.7) H 11/16/17 19: Sodium 141 mmol/L (137-145) 11/16/17 19: Potassium 5.6 mmol/L (3.6-5.0) H 11/16/17 19: Chloride 105.7 mmol/L (98-107) 11/16/17 19: Carbon Dioxide 18 mmol/L (22-30) L 11/16/17 19: Anion Gap 23 mmol/L 11/16/17 19: BUN 63 mg/dL (7-17) H 11/16/17 19:28 Creatinine 9.3 mg/dL (0.7-1.2) H 11/16/17 19:28 Estimated GFR 5 ml/min 11/16/17 19: BUN/Creatinine Ratio 7 % 11/16/17 19:28 Glucose 90 mg/dL (65-100) 11/16/17 19: POC Glucose 79 (70-105) 11/17/17 08:42 Calcium 8.8 mg/dL (8.4-10.2) 11/16/17 19: Total Bilirubin 0.20 mg/dL (0.1-1.2) 11/16/17 19: AST 16 units/L (5-40) 11/16/17: ALT 11 units/L (7-56) 11/16/17 19: Alkaline Phosphatase 79 units/L (35-129) 11/16/17 19: Total Protein 6.4 g/dL (6.3-8.2) 11/16/17: Albumin 3.1 g/dL (3.9-5) L 11/16/17 19: Albumin/Globulin Ratio 0.9 % 11/16/17 19:28 <MAMTA ARREGUIN - Last Filed: 11/17/17 17:21> History Interval history: I saw and evaluated the patient. I agree with the findings and the plan of care as documented in the Nurse Practitioner's~note, with the following corrections and additions. Patient has acute psychosis, probably partly secondary to uremia Supportive care, psych evaluation Nephrology evaluation and recommendations noted Hemodialysis scheduled for tomorrow/TTS agree with the documentation and treatment plan Hospitalist Physical - Constitutional Vitals: Temp Pulse Resp BP Pulse Ox 97.8 F 96 H 18 166/56 99 11/17/17 13:14 11/17/17 13:14 11/17/17 13:14 11/17/17 13:14 11/17/17 13:14 Results - Labs CBC & Chem 7: 11/17/17 15:33 11/17/17 15:33 Labs: Laboratory Last Values WBC 11.9 K/mm3 (4.5-11.0) H 11/17/17 15:33 RBC 3.41 M/mm3 (3.65-5.03) L 11/17/17 15:33 Hgb 10.3 gm/dl (10.1-14.3) 11/17/17 15:33 Hct 32.7 % (30.3-42.9) 11/17/17 15:33 MCV 96 fl (79-97) 11/17/17 15:33 MCH 30 pg (28-32) 11/17/17 15:33 MCHC 32 % (30-34) 11/17/17 15:33 RDW 16.2 % (13.2-15.2) H 11/17/17 15:33 Plt Count 268 K/mm3 (140-440) 11/17/17 15:33 Lymph % (Auto) 10.4 % (13.4-35.0) L 11/17/17 15:33 [place] % (Auto) 5.7 % (0.0-7.3) 11/17/17 15:33 Eos % (Auto) 3.2 % (0.0-4.3) 11/17/17 15:33 Baso % (Auto) 0.4 % (0.0-1.8) 11/17/17 15:33 Lymph # 1.2 K/mm3 (1.2-5.4) 11/17/17 15:33 [place]itus # 0.7 K/mm3 (0.0-0.8) 11/17/17 15:33 Eos # 0.4 K/mm3 (0.0-0.4) 11/17/17 15:33 Baso # 0.1 K/mm3 (0.0-0.1) 11/17/17 15:33 Seg Neutrophils % 80.3 % (40.0-70.0) H 11/17/17 15:33 Seg Neutrophils # 9.5 K/mm3 (1.8-7.7) H 11/17/17 15:33 Sodium 141 mmol/L (137-145) 11/17/17 15:33 Potassium 5.9 mmol/L (3.6-5.0) H 11/17/17 15:33 Chloride 106.2 mmol/L (98-107) 11/17/17 15:33 Carbon Dioxide 15 mmol/L (22-30) L 11/17/17 15:33 Anion Gap 26 mmol/L 11/17/17 15:33 BUN 69 mg/dL (7-17) H 11/17/17 15:33 Creatinine 9.5 mg/dL (0.7-1.2) H 11/17/17 15:33 Estimated GFR 5 ml/min 11/17/17 15:33 BUN/Creatinine Ratio 7 % 11/17/17 15:33 Glucose 88 mg/dL (65-100) 11/17/17 15:33 POC Glucose 100 (70-105) 11/17/17 16:43 Calcium 8.7 mg/dL (8.4-10.2) 11/17/17 15:33 Total Bilirubin 0.20 mg/dL (0.1-1.2) 11/16/17 19:28 AST 16 units/L (5-40) 11/16/17 19:28 ALT 11 units/L (7-56) 11/16/17 19:28 Alkaline Phosphatase 79 units/L (35-129) 11/16/17 19:28 Total Protein 6.4 g/dL (6.3-8.2) 11/16/17 19:28 Albumin 3.1 g/dL (3.9-5) L 11/16/17 19:28 Albumin/Globulin Ratio 0.9 % 11/16/17 19:28
--- NOTE | 2017-11-17 12:33 | Consultation ---
History of Present Illness - Reason for Consult Consult date: 11/17/17 - History of Present Illness pt was seen and examined. Pt goes to [facility] T/T/S. HD tomorrow Medications and Allergies Allergies Allergy/AdvReac Type Severity Reaction Status Date / Time No Known Allergies Allergy Verified 11/28/16 16:27 Home Medications Medication Instructions Recorded Confirmed Last Taken Type Insulin Glargine,Hum.rec.anlog 20 units SQ QHS 11/28/16 11/16/17 01/05/17 History [Toujeo Solostar] Memantine HCl [Namenda] 10 mg PO QDAY 11/28/16 11/16/17 01/05/17 History Quetiapine Fumarate [SEROquel] 100 mg PO HS 11/28/16 11/16/17 01/05/17 History Aspirin EC [Aspirin Enteric Coated 81 mg PO QDAY 11/16/17 11/16/17 Unknown History TAB] Calcitriol [Rocaltrol] 0.5 mcg PO QDAY 11/16/17 11/16/17 Unknown History LORazepam [Ativan] 1 mg PO Q4H PRN 11/16/17 11/16/17 Unknown History Lispro Insulin [Humalog] 100 unit SQ ACHS 11/16/17 11/16/17 Unknown History Active Meds: Active Medications Acetaminophen (Tylenol) 650 mg PO Q4H PRN PRN Reason: For Pain/Fever/Headache Dextrose (D50w (25gm) Syringe) 50 ml IV PRN PRN PRN Reason: Hypoglycemia Heparin Sodium (Porcine) (Heparin) 5,000 unit SUB-Q Q12HR [facility] Last Admin: 11/17/17 10:10 Dose: 5,000 unit Azithromycin 500 mg/ Sodium (Chloride) 250 mls @ 250 mls/hr IV Q24HR [facility] Last Admin: 11/17/17 10:15 Dose: 250 mls/hr Ceftriaxone Sodium 1 gm/ (Sodium Chloride) 20 mls @ 2 mls/min IV Q24HR [facility] Last Admin: 11/17/17 10:10 Dose: 2 mls/min Insulin Human Regular (Humulin R) 0 units SUB-Q NICA; Protocol Last Admin: 11/17/17 11:53 Dose: Not Given Insulin Human Regular (Humulin R) 0 units SUB-Q QHS NICA; Protocol Lorazepam (Ativan) 1 mg IV Q4H PRN PRN Reason: Agitation Ondansetron HCl (Zofran) 4 mg IV Q8H PRN PRN Reason: Nausea And Vomiting Exam - Constitutional Vitals: Temp Pulse Resp BP Pulse Ox 97.8 F 88 19 107/90 97 11/17/17 08:13 11/17/17 10:00 11/17/17 10:00 11/17/17 08:13 11/17/17 11:11 Results - Labs CBC & Chem 7: 11/16/17 19:28 11/16/17 19:28 Labs: Abnormal lab results 11/16/17 11/16/17 Range/Units 19:28 19:28 WBC 13.4 H (4.5-11.0) K/mm3 RBC 3.28 L (3.65-5.03) M/mm3 Hgb 9.8 L (10.1-14.3) gm/dl MCV 98 H (79-97) fl RDW 16.8 H (13.2-15.2) % Lymph % (Auto) 10.5 L (13.4-35.0) % [place] # 0.9 H (0.0-0.8) K/mm3 Seg Neutrophils % 78.9 H (40.0-70.0) % Seg Neutrophils # 10.6 H (1.8-7.7) K/mm3 Potassium 5.6 H (3.6-5.0) mmol/L Carbon Dioxide 18 L (22-30) mmol/L BUN 63 H (7-17) mg/dL Creatinine 9.3 H (0.7-1.2) mg/dL Albumin 3.1 L (3.9-5) g/dL
[2017-11-17 16:00] LABS: Basophils # (Auto) 0.1 K/mm3 (0.0-0.1); Basophils % (Auto) 0.4 % (0.0-1.8); Eosinophils # (Auto) 0.4 K/mm3 (0.0-0.4); Eosinophils % (Auto) 3.2 % (0.0-4.3); Hematocrit 32.7 % (30.3-42.9); Hemoglobin 10.3 gm/dl (10.1-14.3); Lymphocytes # (Auto) 1.2 K/mm3 (1.2-5.4); Lymphocytes % (Auto) 10.4 % (13.4-35.0); Mean Corpuscular HGB Conc 32 % (30-34); Mean Corpuscular Hemoglobin 30 pg (28-32); Mean Corpuscular Volume 96 fl (79-97); Monocytes # (Auto) 0.7 K/mm3 (0.0-0.8); Monocytes % (Auto) 5.7 % (0.0-7.3); Platelet Count 268 K/mm3 (140-440); Red Blood Count 3.41 M/mm3 (3.65-5.03); Red Cell Distribution Width 16.2 % (13.2-15.2)
[2017-11-17] MEDS ORDERED: KIONEX PO NR (16:00)
[2017-11-17 16:22] LABS: Calcium 8.7 mg/dL (8.4-10.2)
[2017-11-17] MEDS: ATIVAN IV PRN (19:37)
--- NOTE | 2017-11-17 22:13 | Consultation ---
RENAL CONSULTATION REASON FOR CONSULTATION: Renal failure. HISTORY OF PRESENT ILLNESS: This 67-year-old female from retirement [facility], was brought to the Emergency Room for altered mental status. The patient did not complete her dialysis treatments in the last 2 sessions because of combativeness. The patient has history of advanced dementia, unable to obtain any information from the patient at present time. The chart was reviewed. PAST MEDICAL HISTORY: Diabetes, hypertension, end-stage renal disease, dementia. PERSONAL HISTORY: Resides in [facility]. ALLERGIES: No known allergies. MEDICATIONS: Insulin, Namenda 10 mg once a day, Seroquel 100 mg once a day, calcitriol 0.5 mcg once a day, aspirin 81 mg a day. REVIEW OF SYSTEMS: Unable to obtain. FAMILY HISTORY: Not available. PHYSICAL EXAMINATION: GENERAL: The patient is alert, confused, memory poor. VITAL SIGNS: Blood pressure 166/56, pulse 96, afebrile. HEENT: Normocephalic. Conjunctivae pale. Lips noncyanotic. NECK: No JVD, no thyroid enlargement. LUNGS: Clear. HEART: S1, S2 regular. No pericardial rub. ABDOMEN: Soft, bowel sounds present, nontender. EXTREMITIES: No significant edema. The patient has right internal jugular tunneled catheter in place. LABORATORY DATA: WBC 13.4, hemoglobin 9.8, hematocrit 32.0, platelets 238. Sodium 141, potassium 5.6, chloride 105, CO2 18, BUN 63, creatinine 9.3, albumin 3.1. Chest x-ray was reported to have mild cardiomegaly, left lower lung is obscured by cardiac shadow. ASSESSMENT AND PLAN: 1. End-stage renal disease. 2. Mild hyperkalemia. 3. Metabolic acidosis. 4. Hypertension. 5. Type 2 diabetes. 6. Mild leukocytosis. 7. Anemia and chronic kidney disease. 8. Hypoalbuminemia. 9. Dementia. 10. Altered mental status. Kayexalate as ordered. Hemodialysis on Friday, , Friday. JOB# [id number] UMK/NTS
[2017-11-18] MEDS: ATIVAN IV PRN (00:19)
[2017-11-18] MEDS: cefTRIAXone 1 GM in NACL 0.9% 20 ML IV SCH ×2 (09:07→10:40)
[2017-11-18] MEDS: ZITHROMAX 500 MG in NACL 0.9% 250ML 250 ML IV SCH ×2 (09:07→10:40)
[2017-11-18] MEDS ORDERED: NACL 0.9% 100 ML IV PRN ×2 (09:10→14:45)
[2017-11-18] MEDS: HEPARIN SUB-Q SCH ×2 (09:10→23:29)
[2017-11-18] MEDS: HumuLIN R SUB-Q SCH ×4 (09:11→23:30)
--- NOTE | 2017-11-18 10:21 | Consultation ---
History of Present Illness - Reason for Consult Consult date: 11/18/17 Reason for consult: Mental Health Evaluation Requesting physician: ZINA MURRAY - Chief Complaint Chief complaint: "AMS" - History of Present Psychiatric Illness 67 years old AA female with a history of advanced dementia and end-stage renal disease on HD. She presents to [facility] by EMS for AMS and combative behavior at her group home. Today the patient is agitated and confused during the assessment. Her answers to questions were not logical. Per the staff, HD (last 2 sesions) has not been done because of the patient's agitation. Also, per the staff, the patient is eating her meals. No gestures of SI/HI's. Medications and Allergies Allergies Allergy/AdvReac Type Severity Reaction Status Date / Time No Known Allergies Allergy Verified 11/28/16 16:27 Home Medications Medication Instructions Recorded Confirmed Last Taken Type Insulin Glargine,Hum.rec.anlog 20 units SQ QHS 11/28/16 11/16/17 01/05/17 History [Toubelao Solostar] Memantine HCl [Namenda] 10 mg PO QDAY 11/28/16 11/16/17 01/05/17 History Quetiapine Fumarate [SEROquel] 100 mg PO HS 11/28/16 11/16/17 01/05/17 History Aspirin EC [Aspirin Enteric Coated 81 mg PO QDAY 11/16/17 11/16/17 Unknown History TAB] Calcitriol [Rocaltrol] 0.5 mcg PO QDAY 11/16/17 11/16/17 Unknown History LORazepam [Ativan] 1 mg PO Q4H PRN 11/16/17 11/16/17 Unknown History Lispro Insulin [Humalog] 100 unit SQ ACHS 11/16/17 11/16/17 Unknown History Active Meds: Active Medications Acetaminophen (Tylenol) 650 mg PO Q4H PRN PRN Reason: For Pain/Fever/Headache Dextrose (D50w (25gm) Syringe) 50 ml IV PRN PRN PRN Reason: Hypoglycemia Heparin Sodium (Porcine) (Heparin) 5,000 unit SUB-Q Q12HR [facility] Last Admin: 11/18/17 09:10 Dose: 5,000 unit Azithromycin 500 mg/ Sodium (Chloride) 250 mls @ 250 mls/hr IV Q24HR [facility] Last Admin: 11/18/17 09:07 Dose: 250 mls/hr Ceftriaxone Sodium 1 gm/ (Sodium Chloride) 20 mls @ 2 mls/min IV Q24HR [facility] Last Admin: 11/18/17 09:07 Dose: 2 mls/min Sodium Chloride (Nacl 0.9%) 100 mls @ 999 mls/hr IV NATHANIEL PRN PRN Reason: Hypotension Insulin Human Regular (Humulin R) 0 units SUB-Q [facility]; Protocol Last Admin: 11/18/17 09:11 Dose: Not Given Insulin Human Regular (Humulin R) 0 units SUB-Q QHS [facility]; Protocol Last Admin: 11/17/17 23:03 Dose: Not Given Lorazepam (Ativan) 1 mg IV Q4H PRN PRN Reason: Agitation Last Admin: 11/18/17 00:19 Dose: 1 mg Ondansetron HCl (Zofran) 4 mg IV Q8H PRN PRN Reason: Nausea And Vomiting Quetiapine Fumarate (Seroquel) 100 mg PO QHS [facility] Last Admin: 11/18/17 00:16 Dose: Not Given Mental Status Exam - Vital signs Last Vital Signs Temp 98.5 F 11/18/17 04:18 Pulse 95 H 11/18/17 04:24 Resp 20 11/18/17 04:18 BP 164/89 11/18/17 08:47 Pulse Ox 94 11/18/17 04:24 - Exam Narrative exam: MSE: Appearance: agitated Behavior: good eye contact Speech: regular rate and low tone Mood: unable to assess Affect: irritable Thought Process: tangential Thought Content: no gestures of SI/HI's and AVH's Motor Activity: in restraints Cognition: alert, but confused Insight: poor Judgment: poor Results Result Diagrams: 11/17/17 15:33 11/18/17 10:32 Abnormal lab results 11/17/17 11/17/17 Range/Units 15:33 15:33 WBC 11.9 H (4.5-11.0) K/mm3 RBC 3.41 L (3.65-5.03) M/mm3 RDW 16.2 H (13.2-15.2) % Lymph % (Auto) 10.4 L (13.4-35.0) % Seg Neutrophils % 80.3 H (40.0-70.0) % Seg Neutrophils # 9.5 H (1.8-7.7) K/mm3 Potassium 5.9 H (3.6-5.0) mmol/L Carbon Dioxide 15 L (22-30) mmol/L BUN 69 H (7-17) mg/dL Creatinine 9.5 H (0.7-1.2) mg/dL All other labs normal. Assessment and Plan Assessment and plan: Impression: Hx of Dementia. Today the patient is agitated and confused during the assessment. The patient is in restraints. CR - 9.5. K - 5.9. Last EKG 2017 QTC 426. Medical: Acute Metabolic Encephalopathy Recommendation/Plan: Continue Seroquel 100 mg PO HS (home medication). Start Haldol 5 mg IM Q6hrs PRN for acute agitation. Recommend delirium precautions below: 1. Frequently reorient patient and involve him/her in their care (simple explanations of procedures, tests, medications). 2. Lights on and shades open during daytime hours. 3. Try to avoid unnecessary interruptions to sleep during nighttime hours. 4. Obtain glasses, hearing aids from home if patient uses these at baseline. 5. Avoid medications that may exacerbate delirium (especially narcotics, barbiturates, ambien, lunesta, benzos, and medications with excessive anticholinergic properties). If possible, use another medication for pain. 6. Use Haldol 5 mg IM Q6hrs PRN for acute agitation. 7. Recommend 1:1 sitter for safety.
[2017-11-18] MEDS ORDERED: APRESOLINE IV PRN (11:10)
[2017-11-18 11:50] LABS: Calcium 8.8 mg/dL (8.4-10.2)
--- NOTE | 2017-11-18 11:51 | XRay Report ---
AP CHEST: HISTORY: Fever Compared to 11/16/17. The right IJ venous catheter and left [id number] remain in the same position. Mild cardiomegaly, mild pulmonary venous congestion and trace left pleural effusion are suspected. No obvious infiltrate or pneumothorax. IMPRESSION: Slightly limited exam. No convincing pneumonia. Mild CHF.
--- NOTE | 2017-11-18 12:04 | Progress Note ---
Assessment and Plan - Patient Problems (1) ESRD (end stage renal disease) Current Visit: Yes Status: Acute Plan to address problem: HD today as ordered. Follow up on labs. Consider bicarb supplements if Co2 remains low. Avoid hypotension (2) Anemia in ESRD (end-stage renal disease) Current Visit: Yes Status: Chronic (3) Altered mental status Current Visit: Yes Status: Acute (4) Hyperkalemia Current Visit: Yes Status: Acute (5) Metabolic acidosis Current Visit: Yes Status: Acute (6) Diabetes Current Visit: Yes Status: Chronic Qualifiers: Diabetes mellitus type: type 2 Subjective Date of service: 11/18/17 Interval history: pt is sleeping, but arousable, not in distress Objective - Vital Signs Vital signs: Vital Signs - 12hr 11/18/17 11/18/17 11/18/17 03:17 04:18 04:24 Temperature 98.9 F 98.5 F Pulse Rate 95 H Respiratory 20 20 Rate Blood Pressure 155/76 152/78 O2 Sat by Pulse 94 Oximetry 11/18/17 08:47 Temperature Pulse Rate Respiratory Rate Blood Pressure 164/89 O2 Sat by Pulse Oximetry - General Appearance General appearance: well-developed EENT: mucous membranes moist Neck: no JVD Respiratory: Present: Clear to Ascultation Cardiology: regular Gastrointestinal: normoactive bowel sounds Musculoskeletal: other (no edema, right IJ catheter in place) - Lab 11/17/17 15:33 11/18/17 10:32 Most recent lab results Calcium 8.8 mg/dL (8.4-10.2) 11/18/17 10:32
[2017-11-18] MEDS: HALDOL IM PRN (12:19)
--- NOTE | 2017-11-18 15:36 | Progress Note ---
<ZINA MURRAY - Last Filed: 11/18/17 15:30> Assessment and Plan Assessment and plan: Patient is 67 years old female long term patient, history of advanced dementia, end-stage renal disease on hemodialysis and diabetes patient presented via EMS for altered mental status combative with nursing staff, patient did not complete her dialysis for the last 2 sessions because of combativeness. Acute metabolic encephalopathy Etiology likely secondary to sepsis Sepsis Likely due to pneumonia, continue IV antibiotics Pneumonia Continue IV antibiotics End-stage renal disease on hemodialysis TTS schedule, Nephrology following Type 2 diabetes mellitus Accu-Cheks before meals and at bedtime, ADA diet and, check hemoglobin A1c, sliding-scale insulin Anemia of chronic disease Epogen with HD Hyperkalemia Repeat BMP today, should be corrected with hemodialysis Hypertension Blood pressure currently controlled, continue current regimen Moderate malnutrition Nutrition services consulted Acute Psychosis Psych following, recs Amyl for acute agitation and continue Seroquel DVT prophylaxis Heparin History Interval history: Patient seen and examined. She is calm and eating breakfast with help of nurse tech. Labs and nursing notes reviewed Hospitalist Physical - Constitutional Vitals: Temp Pulse Resp BP Pulse Ox 98.5 F 95 H 20 164/89 94 11/18/17 04:18 11/18/17 04:24 11/18/17 04:18 11/18/17 08:47 11/18/17 04:24 General appearance: Present: no acute distress, well-nourished - EENT Eyes: Present: PERRL, EOM intact ENT: hearing intact, clear oral mucosa, poor dentition - Neck Neck: Present: supple, normal ROM - Respiratory Respiratory effort: normal Respiratory: bilateral: CTA - Cardiovascular Rhythm: regular Heart Sounds: Present: S1 & S2 - Extremities Extremities: no ischemia, No edema - Abdominal General gastrointestinal: soft, non-tender, non-distended - Integumentary Integumentary: Present: clear, warm, dry - Psychiatric Psychiatric: cooperative, other (calm) - Neurologic Neurologic: CNII-XII intact, moves all extremities - Allied Health Allied health notes reviewed: nursing Results - Labs CBC & Chem 7: 11/17/17 15:33 11/18/17 10:32 Labs: Laboratory Last Values WBC 11.9 K/mm3 (4.5-11.0) H 11/17/17 15:33 RBC 3.41 M/mm3 (3.65-5.03) L 11/17/17 15:33 Hgb 10.3 gm/dl (10.1-14.3) 11/17/17 15:33 Hct 32.7 % (30.3-42.9) 11/17/17 15:33 MCV 96 fl (79-97) 11/17/17 15:33 MCH 30 pg (28-32) 11/17/17 15:33 MCHC 32 % (30-34) 11/17/17 15:33 RDW 16.2 % (13.2-15.2) H 11/17/17 15:33 Plt Count 268 K/mm3 (140-440) 11/17/17 15:33 Lymph % (Auto) 10.4 % (13.4-35.0) L 11/17/17 15:33 [place] % (Auto) 5.7 % (0.0-7.3) 11/17/17 15:33 Eos % (Auto) 3.2 % (0.0-4.3) 11/17/17 15:33 Baso % (Auto) 0.4 % (0.0-1.8) 11/17/17 15:33 Lymph # 1.2 K/mm3 (1.2-5.4) 11/17/17 15:33 [place] # 0.7 K/mm3 (0.0-0.8) 11/17/17 15:33 Eos # 0.4 K/mm3 (0.0-0.4) 11/17/17 15:33 Baso # 0.1 K/mm3 (0.0-0.1) 11/17/17 15:33 Seg Neutrophils % 80.3 % (40.0-70.0) H 11/17/17 15:33 Seg Neutrophils # 9.5 K/mm3 (1.8-7.7) H 11/17/17 15:33 Sodium 148 mmol/L (137-145) H 11/18/17 10:32 Potassium 5.2 mmol/L (3.6-5.0) H 11/18/17 10:32 Chloride 109.8 mmol/L (98-107) H 11/18/17 10:32 Carbon Dioxide 18 mmol/L (22-30) L 11/18/17 10:32 Anion Gap 25 mmol/L 11/18/17 10:32 BUN 73 mg/dL (7-17) H 11/18/17 10:32 Creatinine 10.0 mg/dL (0.7-1.2) H 11/18/17 10:32 Estimated GFR 5 ml/min 11/18/17 10:32 BUN/Creatinine Ratio 7 % 11/18/17 10:32 Glucose 88 mg/dL (65-100) 11/18/17 10:32 POC Glucose 98 (70-105) 11/18/17 11:53 Calcium 8.8 mg/dL (8.4-10.2) 11/18/17 10:32 Total Bilirubin 0.20 mg/dL (0.1-1.2) 11/16/17 19:28 AST 16 units/L (5-40) 11/16/17 19:28 ALT 11 units/L (7-56) 11/16/17 19:28 Alkaline Phosphatase 79 units/L (35-129) 11/16/17 19:28 Total Protein 6.4 g/dL (6.3-8.2) 11/16/17 19:28 Albumin 3.1 g/dL (3.9-5) L 11/16/17 19:28 Albumin/Globulin Ratio 0.9 % 11/16/17 19:28 <MARIAN LUCAS M - Last Filed: 11/23/17 21:06> Hospitalist Physical - Constitutional Vitals: Temp Pulse Resp BP Pulse Ox 98.8 F 86 20 127/48 92 11/23/17 16:30 11/23/17 16:30 11/23/17 16:30 11/23/17 16:30 11/23/17 16:30 Results - Labs CBC & Chem 7: 11/17/17 15:33 11/18/17 10:32 Labs: Laboratory Last Values WBC 11.9 K/mm3 (4.5-11.0) H 11/17/17 15:33 RBC 3.41 M/mm3 (3.65-5.03) L 11/17/17 15:33 Hgb 10.3 gm/dl (10.1-14.3) 11/17/17 15:33 Hct 32.7 % (30.3-42.9) 11/17/17 15:33 MCV 96 fl (79-97) 11/17/17 15:33 MCH 30 pg (28-32) 11/17/17 15:33 MCHC 32 % (30-34) 11/17/17 15:33 RDW 16.2 % (13.2-15.2) H 11/17/17 15:33 Plt Count 268 K/mm3 (140-440) 11/17/17 15:33 Lymph % (Auto) 10.4 % (13.4-35.0) L 11/17/17 15:33 [place]att % (Auto) 5.7 % (0.0-7.3) 11/17/17 15:33 Eos % (Auto) 3.2 % (0.0-4.3) 11/17/17 15:33 Baso % (Auto) 0.4 % (0.0-1.8) 11/17/17 15:33 Lymph # 1.2 K/mm3 (1.2-5.4) 11/17/17 15:33 Piatt # 0.7 K/mm3 (0.0-0.8) 11/17/17 15:33 Eos # 0.4 K/mm3 (0.0-0.4) 11/17/17 15:33 Baso # 0.1 K/mm3 (0.0-0.1) 11/17/17 15:33 Seg Neutrophils % 80.3 % (40.0-70.0) H 11/17/17 15:33 Seg Neutrophils # 9.5 K/mm3 (1.8-7.7) H 11/17/17 15:33 Sodium 148 mmol/L (137-145) H 11/18/17 10:32 Potassium 5.2 mmol/L (3.6-5.0) H 11/18/17 10:32 Chloride 109.8 mmol/L (98-107) H 11/18/17 10:32 Carbon Dioxide 18 mmol/L (22-30) L 11/18/17 10:32 Anion Gap 25 mmol/L 11/18/17 10:32 BUN 73 mg/dL (7-17) H 11/18/17 10:32 Creatinine 10.0 mg/dL (0.7-1.2) H 11/18/17 10:32 Estimated GFR 5 ml/min 11/18/17 10:32 BUN/Creatinine Ratio 7 % 11/18/17 10:32 Glucose 88 mg/dL (65-100) 11/18/17 10:32 POC Glucose 98 (70-105) 11/23/17 07:17 Calcium 8.8 mg/dL (8.4-10.2) 11/18/17 10:32 Total Bilirubin 0.20 mg/dL (0.1-1.2) 11/16/17 19:28 AST 16 units/L (5-40) 11/16/17 19:28 ALT 11 units/L (7-56) 11/16/17 19:28 Alkaline Phosphatase 79 units/L (35-129) 11/16/17 19:28 Total Protein 6.4 g/dL (6.3-8.2) 11/16/17 19:28 Albumin 3.1 g/dL (3.9-5) L 11/16/17 19:28 Albumin/Globulin Ratio 0.9 % 11/16/17 19:28
[2017-11-19] MEDS: HALDOL IM PRN (04:18)
[2017-11-19] MEDS: HumuLIN R SUB-Q SCH ×3 (08:28→17:24)
[2017-11-19] MEDS: HALFPRIN EC PO SCH (09:56)
[2017-11-19] MEDS: NAMENDA PO SCH (09:57)
[2017-11-19] MEDS: ROCALTROL PO SCH (09:57)
[2017-11-19] MEDS: HEPARIN SUB-Q SCH ×2 (09:57→22:55)
[2017-11-19] MEDS: cefTRIAXone 1 GM in NACL 0.9% 20 ML IV SCH (10:06)
[2017-11-19] MEDS: ZITHROMAX 500 MG in NACL 0.9% 250ML 250 ML IV SCH (10:06)
--- NOTE | 2017-11-19 13:39 | Progress Note ---
Assessment and Plan Impression: * End stage renal disease * Dementia w/ behavioral changes * Hypertension * Anemia secondary to ESRD Plan: * Continue HD qTTS * UF as tolerated * Psychiatry recommendations noted * Epogen TIW prn * Renal diet Subjective Date of service: 11/19/17 Interval history: Patient seen resting comfortably. She has no complaints. Objective - Vital Signs Vital signs: Vital Signs - 12hr 11/19/17 11/19/17 11/19/17 01:58 02:24 04:47 Temperature 98.2 F 98.3 F Pulse Rate 80 80 Respiratory 20 18 Rate Blood Pressure 176/91 176/91 160/96 O2 Sat by Pulse 88 Oximetry 11/19/17 11/19/17 11/19/17 04:48 08:16 10:00 Temperature 97.9 F 98.1 F Pulse Rate Respiratory 18 20 20 Rate Blood Pressure 162/81 165/93 O2 Sat by Pulse Oximetry - General Appearance General appearance: well-developed, well-nourished EENT: ATNC Respiratory: Present: Clear to Ascultation Cardiology: regular, S1S2 Gastrointestinal: normal, no tenderness, no distended Integumentary: no rash, warm and dry Psychiatric: cooperative - Lab 11/17/17 15:33 11/18/17 10:32 Most recent lab results Calcium 8.8 mg/dL (8.4-10.2) 11/18/17 10:32
--- NOTE | 2017-11-19 14:48 | Progress Note ---
Subjective - Chief Complaint Chief complaint: Thea is a 67 years old AA female with a history of advanced dementia and end- stage renal disease on HD. She presents to [facility] by EMS for AMS and combative behavior at her [facility]. Today patient presents confused. She reports, "I don't feel good." Provider attempts to assess patient however patient does not respond well. RN is at bedside. She stated patient received Haldol 4 am for agitation. As a result, patient has been drowsy throughout the day. Also, per the staff, the patient is eating her meals. No gestures of SI/HI's. Mental Status Exam - Vital signs Last Vital Signs Temp 98.1 F 11/19/17 08:16 Pulse 80 11/19/17 02:24 Resp 20 11/19/17 10:00 BP 165/93 11/19/17 08:16 Pulse Ox 88 11/19/17 01:58 - Exam Narrative exam: Appearance: Hospital gown Attitude/Behavior: Uncooperative Speech: Regular rate and low tone Sensorium: Distracted, confused Orientation: Alert and person x 1 Mood: Unable to assess Affect: Constricted Thought Process: Tangential Thought Content: Impoverished Motor Activity: In restraints Cognition: Alert, but confused Insight: Poor Judgment: Poor Assessment and Plan Assessment and plan: Impression: Hx of Dementia. Today patient presents confused and distracted. Provider unable to fully assess patient. The patient is in restraints. CR - 9.5. K - 5.9. Last EKG 11/17/2017 QTC 426. Medical: Acute Metabolic Encephalopathy Recommendation/Plan: 1. Continue Seroquel 100 mg PO HS (home medication). Continue Haldol 5 mg IM Q6hrs PRN for acute agitation. Recommend delirium precautions below: 1. Frequently reorient patient and involve him/her in their care (simple explanations of procedures, tests, medications). 2. Lights on and shades open during daytime hours. 3. Try to avoid unnecessary interruptions to sleep during nighttime hours. 4. Obtain glasses, hearing aids from home if patient uses these at baseline. 5. Avoid medications that may exacerbate delirium (especially narcotics, barbiturates, ambien, lunesta, benzos, and medications with excessive anticholinergic properties). If possible, use another medication for pain. 6. Use Haldol 5 mg IM Q6hrs PRN for acute agitation. 7. Recommend 1:1 sitter for safety.
--- NOTE | 2017-11-19 15:22 | Progress Note ---
Assessment and Plan Assessment and plan: Patient is 67 years old female longterm patient, history of advanced dementia, end-stage renal disease on hemodialysis and diabetes patient presented via EMS for altered mental status combative with nursing staff, patient did not complete her dialysis for the last 2 sessions because of combativeness. Acute metabolic encephalopathy Etiology likely secondary to sepsis Sepsis F/u chest x ray showed no convincing PNA will continue to monitor Pneumonia Pt refused abx, f/u chest x ray showed no convincing PNA End-stage renal disease on hemodialysis TTS schedule, Nephrology following Type 2 diabetes mellitus Accu-Cheks before meals and at bedtime, ADA diet and, check hemoglobin A1c, sliding-scale insulin Anemia of chronic disease Epogen with HD Hyperkalemia Repeat BMP today, should be corrected with hemodialysis Hypertension Blood pressure currently controlled, continue current regimen Moderate malnutrition Nutrition services consulted Acute Psychosis Psych following, odalyss Cyn for acute agitation and continue Seroquel DVT prophylaxis Heparin History Interval history: Patient seen and examined. She is very sleepy today. Labs and nursing notes reviewed Hospitalist Physical - Constitutional Vitals: Temp Pulse Resp BP Pulse Ox 98.1 F 80 20 165/93 88 11/19/17 08:16 11/19/17 02:24 11/19/17 10:00 11/19/17 08:16 11/19/17 01:58 General appearance: Present: no acute distress, well-nourished - EENT Eyes: Present: PERRL, EOM intact ENT: hearing intact, clear oral mucosa - Neck Neck: Present: supple, normal ROM - Respiratory Respiratory effort: normal Respiratory: bilateral: CTA - Cardiovascular Rhythm: regular Heart Sounds: Present: S1 & S2 - Extremities Extremities: no ischemia, No edema - Abdominal General gastrointestinal: soft, non-tender, non-distended - Integumentary Integumentary: Present: clear, warm, dry - Psychiatric Psychiatric: appropriate mood/affect, intact judgment & insight, cooperative - Neurologic Neurologic: CNII-XII intact, moves all extremities - Allied Health Allied health notes reviewed: nursing Results - Labs CBC & Chem 7: 11/17/17 15:33 11/18/17 10:32 Labs: Laboratory Last Values WBC 11.9 K/mm3 (4.5-11.0) H 11/17/17 15:33 RBC 3.41 M/mm3 (3.65-5.03) L 11/17/17 15:33 Hgb 10.3 gm/dl (10.1-14.3) 11/17/17 15:33 Hct 32.7 % (30.3-42.9) 11/17/17 15:33 MCV 96 fl (79-97) 11/17/17 15:33 MCH 30 pg (28-32) 11/17/17 15:33 MCHC 32 % (30-34) 11/17/17 15:33 RDW 16.2 % (13.2-15.2) H 11/17/17 15:33 Plt Count 268 K/mm3 (140-440) 11/17/17 15:33 Lymph % (Auto) 10.4 % (13.4-35.0) L 11/17/17 15:33 [place] % (Auto) 5.7 % (0.0-7.3) 11/17/17 15:33 Eos % (Auto) 3.2 % (0.0-4.3) 11/17/17 15:33 Baso % (Auto) 0.4 % (0.0-1.8) 11/17/17 15:33 Lymph # 1.2 K/mm3 (1.2-5.4) 11/17/17 15:33 [place] # 0.7 K/mm3 (0.0-0.8) 11/17/17 15:33 Eos # 0.4 K/mm3 (0.0-0.4) 11/17/17 15:33 Baso # 0.1 K/mm3 (0.0-0.1) 11/17/17 15:33 Seg Neutrophils % 80.3 % (40.0-70.0) H 11/17/17 15:33 Seg Neutrophils # 9.5 K/mm3 (1.8-7.7) H 11/17/17 15:33 Sodium 148 mmol/L (137-145) H 11/18/17 10:32 Potassium 5.2 mmol/L (3.6-5.0) H 11/18/17 10:32 Chloride 109.8 mmol/L (98-107) H 11/18/17 10:32 Carbon Dioxide 18 mmol/L (22-30) L 11/18/17 10:32 Anion Gap 25 mmol/L 11/18/17 10:32 BUN 73 mg/dL (7-17) H 11/18/17 10:32 Creatinine 10.0 mg/dL (0.7-1.2) H 11/18/17 10:32 Estimated GFR 5 ml/min 11/18/17 10:32 BUN/Creatinine Ratio 7 % 11/18/17 10:32 Glucose 88 mg/dL (65-100) 11/18/17 10:32 POC Glucose 130 (70-105) H 11/19/17 11:52 Calcium 8.8 mg/dL (8.4-10.2) 11/18/17 10:32 Total Bilirubin 0.20 mg/dL (0.1-1.2) 11/16/17 19:28 AST 16 units/L (5-40) 11/16/17 19:28 ALT 11 units/L (7-56) 11/16/17 19:28 Alkaline Phosphatase 79 units/L (35-129) 11/16/17 19:28 Total Protein 6.4 g/dL (6.3-8.2) 11/16/17 19:28 Albumin 3.1 g/dL (3.9-5) L 11/16/17 19:28 Albumin/Globulin Ratio 0.9 % 11/16/17 19:28
[2017-11-19] MEDS ORDERED: APRESOLINE PO PRN (15:43)
[2017-11-19] MEDS: ZESTRIL PO SCH (16:22)
[2017-11-19] MEDS: NORVASC PO SCH (16:22)
[2017-11-20] MEDS: HumuLIN R SUB-Q SCH ×5 (00:11→22:46)
--- NOTE | 2017-11-20 10:34 | Progress Note ---
Subjective - Reason for Consult Consult date: 11/20/17 Reason for consult: Psychiatry Follow-up - Chief Complaint Chief complaint: 67 years old AA female with a history of advanced dementia and end-stage renal disease on HD. She presents to [facility] by EMS for AMS and combative behavior at her long-term. Today the patient is calm during the assessment. The patient said hello to me when I arrived to her room. She was asked questions, but her answers were not logical. Per her assigned RN, no behavioral disturbance overnight and the patient is eating 100% of her meals. No gestures of SI/HI's. Mental Status Exam - Vital signs Last Vital Signs Temp 98.3 F 11/20/17 02:45 Pulse 101 H 11/20/17 02:45 Resp 20 11/20/17 02:45 BP 147/80 11/20/17 02:45 Pulse Ox 100 11/20/17 02:45 - Exam Narrative exam: MSE: Appearance: calm Behavior: regular eye contact Speech: regular rate and low tone Mood: "okay" Affect: congruent to mood Thought Process: tangential Thought Content: no gestures of SI/HI's and AVH's Motor Activity: in restraints Cognition: alert, but confused Insight: poor Judgment: poor Assessment and Plan Impression: Hx of Dementia. Today the patient is agitated and confused during the assessment. The patient is in restraints. Medical: Acute Metabolic Encephalopathy Recommendation/Plan: Continue Seroquel 100 mg PO HS (home medication) and Haldol 5 mg IM Q6hrs PRN for acute agitation. Recommend delirium precautions below: 1. Frequently reorient patient and involve him/her in their care (simple explanations of procedures, tests, medications). 2. Lights on and shades open during daytime hours. 3. Try to avoid unnecessary interruptions to sleep during nighttime hours. 4. Obtain glasses, hearing aids from home if patient uses these at baseline. 5. Avoid medications that may exacerbate delirium (especially narcotics, barbiturates, ambien, lunesta, benzos, and medications with excessive anticholinergic properties). If possible, use another medication for pain. 6. Use Haldol 5 mg IM Q6hrs PRN for acute agitation. 7. Recommend 1:1 sitter for safety. 8. D/C restraints when not indicated.
[2017-11-20] MEDS: ROCALTROL PO SCH (11:00)
[2017-11-20] MEDS: NAMENDA PO SCH (11:00)
[2017-11-20] MEDS: HALFPRIN EC PO SCH (11:00)
[2017-11-20] MEDS: HEPARIN SUB-Q SCH (11:01)
[2017-11-20] MEDS: NORVASC PO SCH (11:09)
[2017-11-20] MEDS: ZESTRIL PO SCH (11:10)
--- NOTE | 2017-11-20 12:47 | Discharge Summary ---
Providers - Providers Date of Admission: 11/16/17 22:04 Attending physician: MARIAN LUCAS MD 11/17/17 06:06 Consult to Physician [CONS] Routine Comment: Consulting Provider: WOLFGANG VALDIVIA Physician Instructions: WOLFGANG VALDIVIA Reason For Exam: ESRD ON DIALYSIS 11/17/17 09:53 Consult to Dietitian/Nutrition [CONS] Routine Physician Instructions: Reason For Exam: Reason for Consult: Malnutrition 11/17/17 09:56 psychiatry consult [Consult to Mental Health] [CONS] Routine Reason For Exam: acute psychosis Place consult to:: In House Psychiatry Notified:: Psychiatric services Phone number called:: [phone] Was contact made?: Yes If yes, spoke with:: Karuna Time called:: 12:45 Primary care physician: ROGER SANCHEZ MD Hospitalization Condition: Stable Disposition: DC-30 STILL A PATIENT Exam - Constitutional Vitals: Temp Pulse Resp BP Pulse Ox 97.8 F 95 H 20 142/65 99 11/20/17 11:04 11/20/17 11:10 11/20/17 11:04 11/20/17 11:10 11/20/17 11:04 Plan Activity: fall precautions Follow up with: PRIMARY CAREMD [Primary Care Provider] - 3-5 Days
--- NOTE | 2017-11-20 13:02 | Progress Note ---
Assessment and Plan Impression: * End stage renal disease * Dementia w/ behavioral changes * Hypertension * Anemia secondary to ESRD Plan: * Continue HD qTTS * UF as tolerated * Psychiatry recommendations noted * Epogen TIW prn * Renal diet Subjective Date of service: 11/20/17 Interval history: Patient has no complaints. Per sitter, patient has remained calm throughout the day. She sat in chair, fed herself. Objective - Vital Signs Vital signs: Vital Signs - 12hr 11/20/17 11/20/17 11/20/17 02:45 11:04 11:09 Temperature 98.3 F 97.8 F Pulse Rate 101 H 95 H 95 H Respiratory 20 20 Rate Blood Pressure 147/80 142/65 142/65 O2 Sat by Pulse 100 99 Oximetry 11/20/17 11:10 Temperature Pulse Rate 95 H Respiratory Rate Blood Pressure 142/65 O2 Sat by Pulse Oximetry - General Appearance General appearance: well-developed, well-nourished EENT: ATNC Respiratory: Present: Clear to Ascultation Cardiology: regular, S1S2 Gastrointestinal: no tenderness, no distended Integumentary: no rash, warm and dry Musculoskeletal: other (no edema) Psychiatric: cooperative - Lab 11/17/17 15:33 11/18/17 10:32 Most recent lab results Calcium 8.8 mg/dL (8.4-10.2) 11/18/17 10:32
[2017-11-20] MEDS: HALDOL IM PRN (15:47)
--- NOTE | 2017-11-20 16:15 | Progress Note ---
Assessment and Plan Assessment and plan: Patient is 67 years old female [facility] patient, history of advanced dementia, end-stage renal disease on hemodialysis and diabetes patient presented via EMS for altered mental status combative with nursing staff, patient did not complete her dialysis for the last 2 sessions because of combativeness. Acute metabolic encephalopathy Etiology likely secondary to sepsis Sepsis F/u chest x ray showed no convincing PNA will continue to monitor Pneumonia Pt refused abx, f/u chest x ray showed no convincing PNA End-stage renal disease on hemodialysis TTS schedule, Nephrology following Type 2 diabetes mellitus Accu-Cheks before meals and at bedtime, ADA diet and, check hemoglobin A1c, sliding-scale insulin Anemia of chronic disease Epogen with HD Hyperkalemia Corrected with hemodialysis Hypertension Blood pressure currently controlled, continue current regimen Moderate malnutrition Nutrition services consulted Acute Psychosis Psych following, recs Haldol BID and PRN for acute agitation and d/c Seroquel DVT prophylaxis Heparin History Interval history: Patient seen and examined. She is awake and responding appropriately to questions. Labs and nursing notes reviewed Hospitalist Physical - Constitutional Vitals: Temp Pulse Resp BP Pulse Ox 97.8 F 95 H 20 142/65 99 11/20/17 11:04 11/20/17 11:10 11/20/17 11:04 11/20/17 11:10 11/20/17 11:04 General appearance: Present: no acute distress, well-nourished - EENT Eyes: Present: PERRL, EOM intact ENT: hearing intact, clear oral mucosa, poor dentition - Neck Neck: Present: supple, normal ROM - Respiratory Respiratory effort: normal Respiratory: bilateral: CTA - Cardiovascular Rhythm: regular Heart Sounds: Present: S1 & S2 - Extremities Extremities: no ischemia, No edema - Abdominal General gastrointestinal: soft, non-tender, non-distended - Integumentary Integumentary: Present: clear, warm, dry - Psychiatric Psychiatric: cooperative, other (calm) - Neurologic Neurologic: CNII-XII intact, moves all extremities - Allied Health Allied health notes reviewed: nursing Results - Labs CBC & Chem 7: 11/17/17 15:33 11/18/17 10:32 Labs: Laboratory Last Values WBC 11.9 K/mm3 (4.5-11.0) H 11/17/17 15:33 RBC 3.41 M/mm3 (3.65-5.03) L 11/17/17 15:33 Hgb 10.3 gm/dl (10.1-14.3) 11/17/17 15:33 Hct 32.7 % (30.3-42.9) 11/17/17 15:33 MCV 96 fl (79-97) 11/17/17 15:33 MCH 30 pg (28-32) 11/17/17 15:33 MCHC 32 % (30-34) 11/17/17 15:33 RDW 16.2 % (13.2-15.2) H 11/17/17 15:33 Plt Count 268 K/mm3 (140-440) 11/17/17 15:33 Lymph % (Auto) 10.4 % (13.4-35.0) L 11/17/17 15:33 [place] % (Auto) 5.7 % (0.0-7.3) 11/17/17 15:33 Eos % (Auto) 3.2 % (0.0-4.3) 11/17/17 15:33 Baso % (Auto) 0.4 % (0.0-1.8) 11/17/17 15:33 Lymph # 1.2 K/mm3 (1.2-5.4) 11/17/17 15:33 [place] # 0.7 K/mm3 (0.0-0.8) 11/17/17 15:33 Eos # 0.4 K/mm3 (0.0-0.4) 11/17/17 15:33 Baso # 0.1 K/mm3 (0.0-0.1) 11/17/17 15:33 Seg Neutrophils % 80.3 % (40.0-70.0) H 11/17/17 15:33 Seg Neutrophils # 9.5 K/mm3 (1.8-7.7) H 11/17/17 15:33 Sodium 148 mmol/L (137-145) H 11/18/17 10:32 Potassium 5.2 mmol/L (3.6-5.0) H 11/18/17 10:32 Chloride 109.8 mmol/L (98-107) H 11/18/17 10:32 Carbon Dioxide 18 mmol/L (22-30) L 11/18/17 10:32 Anion Gap 25 mmol/L 11/18/17 10:32 BUN 73 mg/dL (7-17) H 11/18/17 10:32 Creatinine 10.0 mg/dL (0.7-1.2) H 11/18/17 10:32 Estimated GFR 5 ml/min 11/18/17 10:32 BUN/Creatinine Ratio 7 % 11/18/17 10:32 Glucose 88 mg/dL (65-100) 11/18/17 10:32 POC Glucose 157 (70-105) H 11/20/17 11:45 Calcium 8.8 mg/dL (8.4-10.2) 11/18/17 10:32 Total Bilirubin 0.20 mg/dL (0.1-1.2) 11/16/17 19:28 AST 16 units/L (5-40) 11/16/17 19:28 ALT 11 units/L (7-56) 11/16/17 19:28 Alkaline Phosphatase 79 units/L (35-129) 11/16/17 19:28 Total Protein 6.4 g/dL (6.3-8.2) 11/16/17 19:28 Albumin 3.1 g/dL (3.9-5) L 11/16/17 19:28 Albumin/Globulin Ratio 0.9 % 11/16/17 19:28
[2017-11-20] MEDS ORDERED: HALDOL PO SCH (17:00)
[2017-11-20] MEDS ORDERED: NACL 0.9 (PRIMING MACHINE ONLY DIALYSIS) MC ONE ×2 (17:56)
[2017-11-20] MEDS: HEPARIN IV PRN (18:28)
[2017-11-20] MEDS: HALDOL PO SCH (22:35)
[2017-11-21] MEDS: HEPARIN SUB-Q SCH ×3 (00:03→23:20)
[2017-11-21] MEDS: HumuLIN R SUB-Q SCH ×4 (08:41→23:51)
[2017-11-21] MEDS: HALFPRIN EC PO SCH (09:04)
[2017-11-21] MEDS: NORVASC PO SCH (09:04)
[2017-11-21] MEDS: ROCALTROL PO SCH (09:04)
[2017-11-21] MEDS: NAMENDA PO SCH (09:04)
[2017-11-21] MEDS: HALDOL PO SCH ×2 (09:04→23:20)
[2017-11-21] MEDS: ZESTRIL PO SCH (09:04)
--- NOTE | 2017-11-21 10:13 | Progress Note ---
Subjective - Reason for Consult Consult date: 11/21/17 Reason for consult: Psychiatry Follow-up - Chief Complaint Chief complaint: "Alec there" 67 years old AA female with a history of advanced dementia and end-stage renal disease on HD. She presents to [facility] by EMS for AMS and combative behavior at her jail. Today the patient is calm during the assessment. She stated that she slept "okay" last night. Per her assigned RN, no reports of behavioral disturbances overnight. The patient is eating 100% of her meals. No indications of side effects of her medications. No gestures of SI/HI's. Mental Status Exam - Vital signs Last Vital Signs Temp 98.8 F 11/21/17 08:15 Pulse 95 H 11/21/17 09:04 Resp 18 11/21/17 08:15 BP 157/78 11/21/17 09:04 Pulse Ox 97 11/21/17 08:15 - Exam Narrative exam: MSE: Appearance: calm Behavior: regular eye contact Speech: regular rate and low tone Mood: "okay" Affect: congruent to mood Thought Process: tangential Thought Content: no gestures of SI/HI's and AVH's Motor Activity: in restraints Cognition: alert, but confused Insight: poor Judgment: poor Assessment and Plan Impression: Hx of Dementia. Today the patient is calm during the assessment. The patient is in restraints. Medical: Acute Metabolic Encephalopathy Recommendation/Plan: Continue Haldol 2 mg PO BID and Haldol 5 mg IM Q6hrs PRN for acute agitation only. Recommend delirium precautions below: 1. Frequently reorient patient and involve him/her in their care (simple explanations of procedures, tests, medications). 2. Lights on and shades open during daytime hours. 3. Try to avoid unnecessary interruptions to sleep during nighttime hours. 4. Obtain glasses, hearing aids from home if patient uses these at baseline. 5. Avoid medications that may exacerbate delirium (especially narcotics, barbiturates, ambien, lunesta, benzos, and medications with excessive anticholinergic properties). 6. Use Haldol 5 mg IM Q6hrs PRN for acute agitation only. 7. Recommend 1:1 sitter for safety. 8. D/C restraints when not indicated.
--- NOTE | 2017-11-21 10:35 | Progress Note ---
Assessment and Plan Impression: * End stage renal disease * Dementia w/ behavioral changes * Hypertension * Anemia secondary to ESRD Plan: * Defer medication adjustment per psychiatry - patient unable to complete treatment yesterday due to combative behavior * No acute need for HD today. Continue HD qTTS * UF as tolerated * Epogen TIW prn * Renal diet * Daughter at bedside. Updated her of patient's combative behavior at dialysis yesterday. She is aware that combativeness/resistance to care continues to be an issue at her outpatient dialysis clinic as well. Patient is currently restrained. Informed daughter that restraints are not used in an outpatient dialysis setting. Discussed need for family member to sit with patient during outpatient dialysis treatment if behavior continues. Discussed possibility of hospice as well. Daughter voiced understanding. Subjective Date of service: 11/21/17 Interval history: Patient was unable to complete dialysis yesterday due to combative behavior. She is currently calm but in restraints. Objective - Vital Signs Vital signs: Vital Signs - 12hr 11/21/17 11/21/17 11/21/17 02:59 08:15 09:04 Temperature 98.5 F 98.8 F Pulse Rate 95 H 95 H Respiratory 18 18 Rate Blood Pressure 147/76 157/78 157/78 O2 Sat by Pulse 97 Oximetry - General Appearance General appearance: well-developed, well-nourished EENT: ATNC Respiratory: Present: Clear to Ascultation Cardiology: regular, S1S2 Gastrointestinal: normal, no tenderness, no distended Integumentary: no rash, warm and dry Musculoskeletal: other (no edema) Psychiatric: cooperative - Lab 11/17/17 15:33 11/18/17 10:32 Most recent lab results Calcium 8.8 mg/dL (8.4-10.2) 11/18/17 10:32
--- NOTE | 2017-11-21 13:12 | Progress Note ---
Assessment and Plan Assessment and plan: Patient is 67 years old female long-term patient, history of advanced dementia, end-stage renal disease on hemodialysis and diabetes patient presented via EMS for altered mental status combative with nursing staff, patient did not complete her dialysis for the last 2 sessions because of combativeness. Acute metabolic encephalopathy Etiology likely secondary to sepsis Sepsis F/u chest x ray showed no convincing PNA will continue to monitor Pneumonia Pt refused abx, f/u chest x ray showed no convincing PNA End-stage renal disease on hemodialysis TTS schedule, Nephrology following Type 2 diabetes mellitus Accu-Cheks before meals and at bedtime, ADA diet and, check hemoglobin A1c, sliding-scale insulin Anemia of chronic disease Epogen with HD Hyperkalemia Corrected with hemodialysis Hypertension BP began trending up, Lisinopril increased to 40mg QD, continue current regimen Moderate malnutrition Nutrition services consulted Acute Psychosis Psych following, recs Haldol 2mg BID and 5 mg PRN for acute agitation and Seroquel d/c'd DVT prophylaxis Heparin History Interval history: Patient seen and examined with daughter at bedside. She is calm today. Labs and nursing notes reviewed Hospitalist Physical - Constitutional Vitals: Temp Pulse Resp BP Pulse Ox 98.8 F 95 H 18 157/78 97 11/21/17 08:15 11/21/17 09:04 11/21/17 08:15 11/21/17 09:04 11/21/17 08:15 General appearance: Present: no acute distress, well-nourished - EENT Eyes: Present: PERRL, EOM intact ENT: hearing intact, clear oral mucosa - Neck Neck: Present: supple, normal ROM - Respiratory Respiratory effort: normal Respiratory: bilateral: CTA - Cardiovascular Rhythm: regular Heart Sounds: Present: S1 & S2 - Extremities Extremities: no ischemia, No edema - Abdominal General gastrointestinal: soft, non-tender, non-distended - Integumentary Integumentary: Present: clear, warm, dry - Psychiatric Psychiatric: appropriate mood/affect, intact judgment & insight, cooperative - Neurologic Neurologic: CNII-XII intact, moves all extremities - Allied Health Allied health notes reviewed: nursing Results - Labs CBC & Chem 7: 11/17/17 15:33 11/18/17 10:32 Labs: Laboratory Last Values WBC 11.9 K/mm3 (4.5-11.0) H 11/17/17 15:33 RBC 3.41 M/mm3 (3.65-5.03) L 11/17/17 15:33 Hgb 10.3 gm/dl (10.1-14.3) 11/17/17 15:33 Hct 32.7 % (30.3-42.9) 11/17/17 15:33 MCV 96 fl (79-97) 11/17/17 15:33 MCH 30 pg (28-32) 11/17/17 15:33 MCHC 32 % (30-34) 11/17/17 15:33 RDW 16.2 % (13.2-15.2) H 11/17/17 15:33 Plt Count 268 K/mm3 (140-440) 11/17/17 15:33 Lymph % (Auto) 10.4 % (13.4-35.0) L 11/17/17 15:33 [place] % (Auto) 5.7 % (0.0-7.3) 11/17/17 15:33 Eos % (Auto) 3.2 % (0.0-4.3) 11/17/17 15:33 Baso % (Auto) 0.4 % (0.0-1.8) 11/17/17 15:33 Lymph # 1.2 K/mm3 (1.2-5.4) 11/17/17 15:33 [place] # 0.7 K/mm3 (0.0-0.8) 11/17/17 15:33 Eos # 0.4 K/mm3 (0.0-0.4) 11/17/17 15:33 Baso # 0.1 K/mm3 (0.0-0.1) 11/17/17 15:33 Seg Neutrophils % 80.3 % (40.0-70.0) H 11/17/17 15:33 Seg Neutrophils # 9.5 K/mm3 (1.8-7.7) H 11/17/17 15:33 Sodium 148 mmol/L (137-145) H 11/18/17 10:32 Potassium 5.2 mmol/L (3.6-5.0) H 11/18/17 10:32 Chloride 109.8 mmol/L (98-107) H 11/18/17 10:32 Carbon Dioxide 18 mmol/L (22-30) L 11/18/17 10:32 Anion Gap 25 mmol/L 11/18/17 10:32 BUN 73 mg/dL (7-17) H 11/18/17 10:32 Creatinine 10.0 mg/dL (0.7-1.2) H 11/18/17 10:32 Estimated GFR 5 ml/min 11/18/17 10:32 BUN/Creatinine Ratio 7 % 11/18/17 10:32 Glucose 88 mg/dL (65-100) 11/18/17 10:32 POC Glucose 91 (70-105) 11/21/17 08:21 Calcium 8.8 mg/dL (8.4-10.2) 11/18/17 10:32 Total Bilirubin 0.20 mg/dL (0.1-1.2) 11/16/17 19:28 AST 16 units/L (5-40) 11/16/17 19:28 ALT 11 units/L (7-56) 11/16/17 19:28 Alkaline Phosphatase 79 units/L (35-129) 11/16/17 19:28 Total Protein 6.4 g/dL (6.3-8.2) 11/16/17 19:28 Albumin 3.1 g/dL (3.9-5) L 11/16/17 19:28 Albumin/Globulin Ratio 0.9 % 11/16/17 19:28
[2017-11-21] MEDS ORDERED: ZESTRIL PO NR (14:00)
[2017-11-22] MEDS: HumuLIN R SUB-Q SCH ×4 (08:25→22:07)
[2017-11-22] MEDS: HALDOL IM PRN (09:32)
[2017-11-22] MEDS: HALDOL PO SCH ×2 (09:35→22:06)
[2017-11-22] MEDS: ZESTRIL PO SCH (09:35)
[2017-11-22] MEDS: ROCALTROL PO SCH (09:35)
[2017-11-22] MEDS: NORVASC PO SCH (09:35)
[2017-11-22] MEDS: NAMENDA PO SCH (09:36)
[2017-11-22] MEDS: HEPARIN SUB-Q SCH ×2 (09:36→22:06)
[2017-11-22] MEDS: HALFPRIN EC PO SCH (09:36)
--- NOTE | 2017-11-22 12:58 | Progress Note ---
Assessment and Plan Impression: * End stage renal disease * Dementia w/ behavioral changes * Hypertension * Anemia secondary to ESRD Plan: * Defer medication adjustment per psychiatry - * Patient is currently undergoing dialysis. Tolerating well. * Continue HD qTTS * UF as tolerated * Epogen TIW prn * Renal diet Subjective Date of service: 11/22/17 Interval history: Patient is currently undergoing dialysis. Tolerating well. It appears comfortable. Objective - Vital Signs Vital signs: Vital Signs - 12hr 11/22/17 11/22/17 11/22/17 02:41 02:46 07:27 Temperature 99.8 F H 99.8 F H 99.1 F Pulse Rate 100 H 87 Respiratory 18 18 18 Rate Blood Pressure 151/74 127/52 Blood Pressure 151/74 [Left] O2 Sat by Pulse 100 100 Oximetry 11/22/17 11/22/17 11/22/17 10:00 10:15 10:30 Temperature Pulse Rate 87 84 81 Respiratory Rate Blood Pressure 133/61 127/65 119/70 Blood Pressure [Left] O2 Sat by Pulse Oximetry 11/22/17 11/22/17 11/22/17 10:45 10:48 11:00 Temperature 99.1 F Pulse Rate 84 86 89 Respiratory 18 Rate Blood Pressure 140/74 123/54 126/56 Blood Pressure [Left] O2 Sat by Pulse Oximetry 11/22/17 11/22/17 11/22/17 11:15 11:30 11:45 Temperature Pulse Rate 85 87 84 Respiratory Rate Blood Pressure 113/66 110/61 104/63 Blood Pressure [Left] O2 Sat by Pulse Oximetry 11/22/17 12:00 Temperature Pulse Rate 84 Respiratory Rate Blood Pressure 113/59 Blood Pressure [Left] O2 Sat by Pulse Oximetry - General Appearance General appearance: well-developed, well-nourished, appears stated age EENT: PERRL, mucous membranes moist Neck: no JVD, no thyromegaly, other (right IJ permcath in place ) Respiratory: Present: Clear to Ascultation Cardiology: regular, normal heart rate, S1S2, no murmurs Gastrointestinal: normal, normoactive bowel sounds Integumentary: no rash, other - Lab 11/17/17 15:33 11/18/17 10:32 Most recent lab results Calcium 8.8 mg/dL (8.4-10.2) 11/18/17 10:32
[2017-11-22] MEDS: HEPARIN IV PRN (13:14)
--- NOTE | 2017-11-22 14:09 | Progress Note ---
Assessment and Plan Assessment and plan: Patient is 67 years old female [facility] patient, history of advanced dementia, end-stage renal disease on hemodialysis and diabetes patient presented via EMS for altered mental status combative with nursing staff, patient did not complete her dialysis for the last 2 sessions because of combativeness. Acute metabolic encephalopathy Etiology likely secondary to sepsis Sepsis F/u chest x ray showed no convincing PNA will continue to monitor Pneumonia Pt refused abx, f/u chest x ray showed no convincing PNA End-stage renal disease on hemodialysis TTS schedule, Nephrology following Type 2 diabetes mellitus Accu-Cheks before meals and at bedtime, ADA diet and, check hemoglobin A1c, sliding-scale insulin Anemia of chronic disease Epogen with HD Hyperkalemia Corrected with hemodialysis Hypertension BP began trending up, Lisinopril increased to 40mg QD, continue current regimen Moderate malnutrition Nutrition services consulted Dementia with behavioral disturbance Psych following, recs Haldol 2mg BID and 5 mg PRN for acute agitation and Seroquel d/c'd DVT prophylaxis Heparin History Interval history: less agitated today, but still not cooperative at all times no fevers, no seizures, no cp, no syncope, no vomiting Hospitalist Physical - Physical exam Narrative exam: General appearance: Present: no acute distress, well-nourished - EENT Eyes: Present: PERRL, EOM intact ENT: hearing intact, clear oral mucosa - Neck Neck: Present: supple, normal ROM - Respiratory Respiratory effort: normal Respiratory: bilateral: CTA - Cardiovascular Rhythm: regular Heart Sounds: Present: S1 & S2 - Extremities Extremities: no ischemia, No edema - Abdominal General gastrointestinal: soft, non-tender, non-distended - Integumentary Integumentary: Present: clear, warm, dry - Psychiatric Psychiatric: less agitated today, judgment is not intact, she is demented and only oriented to person - Neurologic Neurologic: CNII-XII intact, moves all extremities - Constitutional Vitals: Temp Pulse Resp BP Pulse Ox 99.1 F 87 18 128/65 100 11/22/17 10:48 11/22/17 13:10 11/22/17 10:48 11/22/17 13:10 11/22/17 07:27 General appearance: Present: no acute distress, well-nourished Results - Labs CBC & Chem 7: 11/17/17 15:33 11/18/17 10:32 Labs: Laboratory Last Values WBC 11.9 K/mm3 (4.5-11.0) H 11/17/17 15:33 RBC 3.41 M/mm3 (3.65-5.03) L 11/17/17 15:33 Hgb 10.3 gm/dl (10.1-14.3) 11/17/17 15:33 Hct 32.7 % (30.3-42.9) 11/17/17 15:33 MCV 96 fl (79-97) 11/17/17 15:33 MCH 30 pg (28-32) 11/17/17 15:33 MCHC 32 % (30-34) 11/17/17 15:33 RDW 16.2 % (13.2-15.2) H 11/17/17 15:33 Plt Count 268 K/mm3 (140-440) 11/17/17 15:33 Lymph % (Auto) 10.4 % (13.4-35.0) L 11/17/17 15:33 [place] % (Auto) 5.7 % (0.0-7.3) 11/17/17 15:33 Eos % (Auto) 3.2 % (0.0-4.3) 11/17/17 15:33 Baso % (Auto) 0.4 % (0.0-1.8) 11/17/17 15:33 Lymph # 1.2 K/mm3 (1.2-5.4) 11/17/17 15:33 [place] # 0.7 K/mm3 (0.0-0.8) 11/17/17 15:33 Eos # 0.4 K/mm3 (0.0-0.4) 11/17/17 15:33 Baso # 0.1 K/mm3 (0.0-0.1) 11/17/17 15:33 Seg Neutrophils % 80.3 % (40.0-70.0) H 11/17/17 15:33 Seg Neutrophils # 9.5 K/mm3 (1.8-7.7) H 11/17/17 15:33 Sodium 148 mmol/L (137-145) H 11/18/17 10:32 Potassium 5.2 mmol/L (3.6-5.0) H 11/18/17 10:32 Chloride 109.8 mmol/L (98-107) H 11/18/17 10:32 Carbon Dioxide 18 mmol/L (22-30) L 11/18/17 10:32 Anion Gap 25 mmol/L 11/18/17 10:32 BUN 73 mg/dL (7-17) H 11/18/17 10:32 Creatinine 10.0 mg/dL (0.7-1.2) H 11/18/17 10:32 Estimated GFR 5 ml/min 11/18/17 10:32 BUN/Creatinine Ratio 7 % 11/18/17 10:32 Glucose 88 mg/dL (65-100) 11/18/17 10:32 POC Glucose 87 (70-105) 11/22/17 07:37 Calcium 8.8 mg/dL (8.4-10.2) 11/18/17 10:32 Total Bilirubin 0.20 mg/dL (0.1-1.2) 11/16/17 19:28 AST 16 units/L (5-40) 11/16/17 19:28 ALT 11 units/L (7-56) 11/16/17 19:28 Alkaline Phosphatase 79 units/L (35-129) 11/16/17 19:28 Total Protein 6.4 g/dL (6.3-8.2) 11/16/17 19:28 Albumin 3.1 g/dL (3.9-5) L 11/16/17 19:28 Albumin/Globulin Ratio 0.9 % 11/16/17 19:28
[2017-11-22] MEDS: MIRALAX 3350 PO SCH (22:06)
[2017-11-23] MEDS: HumuLIN R SUB-Q SCH ×4 (07:55→23:27)
[2017-11-23] MEDS: NAMENDA PO SCH (10:05)
[2017-11-23] MEDS: HALFPRIN EC PO SCH (10:05)
[2017-11-23] MEDS: ROCALTROL PO SCH (10:05)
[2017-11-23] MEDS: MIRALAX 3350 PO SCH (10:05)
[2017-11-23] MEDS: HALDOL PO SCH ×2 (10:05→23:27)
[2017-11-23] MEDS: NORVASC PO SCH (10:06)
[2017-11-23] MEDS: ZESTRIL PO SCH (10:07)
[2017-11-23] MEDS: HEPARIN SUB-Q SCH ×2 (10:07→23:27)
--- NOTE | 2017-11-23 12:49 | Progress Note ---
Assessment and Plan Impression: * End stage renal disease * Dementia w/ behavioral changes * Hypertension * Anemia secondary to ESRD Plan: * Defer medication adjustment per psychiatry - * Patient is currently undergoing dialysis. Tolerating well. * Continue HD qTTS * UF as tolerated * Epogen TIW prn * Renal diet * Patient will likely need a family member to sit with her during her dialysis treatments at the outpatient clinic Subjective Date of service: 11/23/17 Interval history: Patient is comfortable. Uneventful hemodialysis yesterday. Refused to have lunch. States that she is going to eat later. Objective - Vital Signs Vital signs: Vital Signs - 12hr 11/23/17 11/23/17 11/23/17 05:15 07:14 10:00 Temperature 99.7 F H 99.2 F Pulse Rate 84 79 Respiratory 18 18 20 Rate Blood Pressure 130/50 129/56 O2 Sat by Pulse 100 98 Oximetry 11/23/17 11/23/17 10:06 10:07 Temperature Pulse Rate 79 79 Respiratory Rate Blood Pressure 129/56 129/56 O2 Sat by Pulse Oximetry - General Appearance General appearance: well-developed, well-nourished, appears stated age EENT: PERRL, mucous membranes moist Neck: no JVD, no thyromegaly, no carotid bruit, supple, other (right IJ permcath in place ) Cardiology: regular, normal heart rate, S1S2, no murmurs Gastrointestinal: normal, normoactive bowel sounds Integumentary: other (no edema) - Lab 11/17/17 15:33 11/18/17 10:32 Most recent lab results Calcium 8.8 mg/dL (8.4-10.2) 11/18/17 10:32
--- NOTE | 2017-11-23 18:26 | Progress Note ---
Subjective - Reason for Consult Consult date: 11/23/17 Reason for consult: follow up - Chief Complaint Chief complaint: resting 67 years old AA female with a history of advanced dementia and end-stage renal disease on HD. She presents to [facility] by EMS for AMS and combative behavior at her correction. She is resting today. Staff report she was combative earlier during her fingerstick attempt and with anything that has to do with needles. The patient is eating 100% of her meals. No indications of side effects of her medications. No gestures of SI/HI's. Mental Status Exam - Vital signs Last Vital Signs Temp 98.8 F 11/23/17 16:30 Pulse 86 11/23/17 16:30 Resp 20 11/23/17 16:30 BP 127/48 11/23/17 16:30 Pulse Ox 92 11/23/17 16:30 - Exam Narrative exam: MSE: Appearance: resting Behavior: resting Speech: not verbal today Mood: unable to assess Affect: congruent to mood Thought Process: unable to assess Thought Content: no gestures of SI/HI's and AVH's Motor Activity: WNL Cognition: confused Insight: poor Judgment: poor Assessment and Plan Impression: Hx of Dementia. Medical: Acute Metabolic Encephalopathy Recommendation/Plan: Continue Haldol 2 mg PO BID and Haldol 5 mg IM Q6hrs PRN for acute agitation only. Recommend delirium precautions below: 1. Frequently reorient patient and involve him/her in their care (simple explanations of procedures, tests, medications). 2. Lights on and shades open during daytime hours. 3. Try to avoid unnecessary interruptions to sleep during nighttime hours. 4. Obtain glasses, hearing aids from home if patient uses these at baseline. 5. Avoid medications that may exacerbate delirium (especially narcotics, barbiturates, ambien, lunesta, benzos, and medications with excessive anticholinergic properties). 6. Use Haldol 5 mg IM Q6hrs PRN for acute agitation only. 7. Recommend 1:1 sitter for safety. 8. D/C restraints when not indicated.
--- NOTE | 2017-11-23 21:12 | Progress Note ---
Assessment and Plan Assessment and plan: Patient is 67 years old female [facility] patient, history of advanced dementia, end-stage renal disease on hemodialysis and diabetes patient presented via EMS for altered mental status combative with nursing staff, patient did not complete her dialysis for the last 2 sessions because of combativeness. Acute metabolic encephalopathy Etiology likely secondary to sepsis Sepsis F/u chest x ray showed no convincing PNA will continue to monitor Pneumonia Pt refused abx, f/u chest x ray showed no convincing PNA End-stage renal disease on hemodialysis TTS schedule, Nephrology following Type 2 diabetes mellitus Accu-Cheks before meals and at bedtime, ADA diet and, check hemoglobin A1c, sliding-scale insulin Anemia of chronic disease Epogen with HD Hyperkalemia Corrected with hemodialysis Hypertension BP began trending up, Lisinopril increased to 40mg QD, continue current regimen Moderate malnutrition Nutrition services consulted Dementia with behavioral disturbance Psych following, recs Haldol 2mg BID and 5 mg PRN for acute agitation and Seroquel d/c'd DVT prophylaxis Heparin History Interval history: less agitated today, but still not cooperative at all times no fevers, no seizures, no cp, no syncope, no vomiting Hospitalist Physical - Physical exam Narrative exam: General appearance: Present: no acute distress, well-nourished - EENT Eyes: Present: PERRL, EOM intact ENT: hearing intact, clear oral mucosa - Neck Neck: Present: supple, normal ROM - Respiratory Respiratory effort: normal Respiratory: bilateral: CTA - Cardiovascular Rhythm: regular Heart Sounds: Present: S1 & S2 - Extremities Extremities: no ischemia, No edema - Abdominal General gastrointestinal: soft, non-tender, non-distended - Integumentary Integumentary: Present: clear, warm, dry - Psychiatric Psychiatric: less agitated today, judgment is not intact, she is demented and only oriented to person - Neurologic Neurologic: CNII-XII intact, moves all extremities - Constitutional Vitals: Temp Pulse Resp BP Pulse Ox 98.8 F 86 20 127/48 92 11/23/17 16:30 11/23/17 16:30 11/23/17 16:30 11/23/17 16:30 11/23/17 16:30 General appearance: Present: no acute distress, well-nourished Results - Labs CBC & Chem 7: 11/17/17 15:33 11/18/17 10:32 Labs: Laboratory Last Values WBC 11.9 K/mm3 (4.5-11.0) H 11/17/17 15:33 RBC 3.41 M/mm3 (3.65-5.03) L 11/17/17 15:33 Hgb 10.3 gm/dl (10.1-14.3) 11/17/17 15:33 Hct 32.7 % (30.3-42.9) 11/17/17 15:33 MCV 96 fl (79-97) 11/17/17 15:33 MCH 30 pg (28-32) 11/17/17 15:33 MCHC 32 % (30-34) 11/17/17 15:33 RDW 16.2 % (13.2-15.2) H 11/17/17 15:33 Plt Count 268 K/mm3 (140-440) 11/17/17 15:33 Lymph % (Auto) 10.4 % (13.4-35.0) L 11/17/17 15:33 [place] % (Auto) 5.7 % (0.0-7.3) 11/17/17 15:33 Eos % (Auto) 3.2 % (0.0-4.3) 11/17/17 15:33 Baso % (Auto) 0.4 % (0.0-1.8) 11/17/17 15:33 Lymph # 1.2 K/mm3 (1.2-5.4) 11/17/17 15:33 [place] # 0.7 K/mm3 (0.0-0.8) 11/17/17 15:33 Eos # 0.4 K/mm3 (0.0-0.4) 11/17/17 15:33 Baso # 0.1 K/mm3 (0.0-0.1) 11/17/17 15:33 Seg Neutrophils % 80.3 % (40.0-70.0) H 11/17/17 15:33 Seg Neutrophils # 9.5 K/mm3 (1.8-7.7) H 11/17/17 15:33 Sodium 148 mmol/L (137-145) H 11/18/17 10:32 Potassium 5.2 mmol/L (3.6-5.0) H 11/18/17 10:32 Chloride 109.8 mmol/L (98-107) H 11/18/17 10:32 Carbon Dioxide 18 mmol/L (22-30) L 11/18/17 10:32 Anion Gap 25 mmol/L 11/18/17 10:32 BUN 73 mg/dL (7-17) H 11/18/17 10:32 Creatinine 10.0 mg/dL (0.7-1.2) H 11/18/17 10:32 Estimated GFR 5 ml/min 11/18/17 10:32 BUN/Creatinine Ratio 7 % 11/18/17 10:32 Glucose 88 mg/dL (65-100) 11/18/17 10:32 POC Glucose 98 (70-105) 11/23/17 07:17 Calcium 8.8 mg/dL (8.4-10.2) 11/18/17 10:32 Total Bilirubin 0.20 mg/dL (0.1-1.2) 11/16/17 19:28 AST 16 units/L (5-40) 11/16/17 19:28 ALT 11 units/L (7-56) 11/16/17 19:28 Alkaline Phosphatase 79 units/L (35-129) 11/16/17 19:28 Total Protein 6.4 g/dL (6.3-8.2) 11/16/17 19:28 Albumin 3.1 g/dL (3.9-5) L 11/16/17 19:28 Albumin/Globulin Ratio 0.9 % 11/16/17 19:28
[2017-11-24] MEDS: HALDOL IM PRN (00:52)
[2017-11-24] MEDS: HumuLIN R SUB-Q SCH ×2 (07:44→12:23)
[2017-11-24] MEDS: HEPARIN SUB-Q SCH (09:12)
[2017-11-24] MEDS: HALFPRIN EC PO SCH (09:13)
[2017-11-24] MEDS: ROCALTROL PO SCH (09:14)
[2017-11-24] MEDS: MIRALAX 3350 PO SCH (09:14)
[2017-11-24] MEDS: HALDOL PO SCH (09:14)
[2017-11-24] MEDS: NAMENDA PO SCH (09:14)
[2017-11-24] MEDS: NORVASC PO SCH (09:16)
[2017-11-24] MEDS: ZESTRIL PO SCH (09:16)
[2017-11-24 09:17] VITALS: BP 105/45
--- NOTE | 2017-11-24 10:41 | Progress Note ---
Subjective - Reason for Consult Consult date: 11/24/17 Reason for consult: Psychiatry Follow-up - Chief Complaint Chief complaint: "I'm okay" 67 years old AA female with a history of advanced dementia and end-stage renal disease on HD. She presents to [facility] by EMS for AMS and combative behavior at her assisted. Today the patient is calm during the assessment. The patient was sitting up in the chair during the interview. Per previous interviews, the patient was in restraints. She stated that she had something on her mind, but refused to discuss the matter. No indications of side effecst of her medications. No gestures of SI/HI's and AVH's. Mental Status Exam - Vital signs Last Vital Signs Temp 97.7 F 11/24/17 04:49 Pulse 80 11/24/17 10:00 Resp 20 11/23/17 16:30 BP 105/45 11/24/17 09:16 Pulse Ox 99 11/24/17 04:49 - Exam Narrative exam: MSE: Appearance: calm Behavior: regular eye contact Speech: regular rate and low tone Mood: "okay" Affect: congruent to mood Thought Process: circumstantial Thought Content: no gestures of SI/HI's and AVH's Motor Activity: sitting in chair Cognition: alert, but confused Insight: poor Judgment: poor Assessment and Plan Impression: Hx of Dementia. Today the patient is calm during the assessment. Medical: Acute Metabolic Encephalopathy Recommendation/Plan: Continue Haldol 2 mg PO BID and Haldol 5 mg IM Q6hrs PRN for acute agitation only. The patient is pending discharge today.
--- NOTE | 2017-11-24 10:54 | Progress Note ---
Assessment and Plan Impression: * End stage renal disease * Dementia w/ behavioral changes * Hypertension * Anemia secondary to ESRD Plan: * Defer medication adjustment per psychiatry - * Continue HD qTTS * UF as tolerated * Epogen TIW prn * Renal diet * Patient will likely need a family member to sit with her during her dialysis treatments at the outpatient clinic Subjective Date of service: 11/24/17 Principal diagnosis: esrd Interval history: resting in bed today Objective - Exam Narrative Exam: General appearance: well-developed, well-nourished, appears stated age EENT: PERRL, mucous membranes moist Neck: no JVD, no thyromegaly, no carotid bruit, supple, other (right IJ permcath in place ) Cardiology: regular, normal heart rate, S1S2, no murmurs Gastrointestinal: normal, normoactive bowel sounds Integumentary: other (no edema) - Vital Signs Vital signs: Vital Signs - 12hr 11/23/17 11/24/17 11/24/17 23:36 04:49 09:16 Temperature 99 F 97.7 F Pulse Rate 79 82 80 Pulse Rate [ From Monitor] Blood Pressure 105/45 Blood Pressure 151/68 145/69 [Left] O2 Sat by Pulse 99 Oximetry 11/24/17 10:00 Temperature Pulse Rate Pulse Rate [ 80 From Monitor] Blood Pressure Blood Pressure [Left] O2 Sat by Pulse Oximetry - Lab 11/17/17 15:33 11/18/17 10:32 Most recent lab results Calcium 8.8 mg/dL (8.4-10.2) 11/18/17 10:32
== END 2017-11-24 13:00 | disposition home or self-care (01) | DRG 871 ==
LOC: ED 14:41 → 2B-ACE 22:04
PROVIDERS: ADMIT Internal Medicine; ATTEND Internal Medicine
PROC: 5A1D70Z Performance of Urinary Filtration, Intermittent, Less than 6 Hours Per Day (ICD-10-PCS; principal; 2017-11-18)
PROC: 5A1D70Z Performance of Urinary Filtration, Intermittent, Less than 6 Hours Per Day (ICD-10-PCS; 2017-11-20)
PROC: 5A1D70Z Performance of Urinary Filtration, Intermittent, Less than 6 Hours Per Day (ICD-10-PCS; 2017-11-22)
DX: A41.9 Sepsis, unspecified organism (principal); G93.41 Metabolic encephalopathy; N18.6 End stage renal disease; J18.9 Pneumonia, unspecified organism; E44.0 Moderate protein-calorie malnutrition; I12.0 Hypertensive chronic kidney disease with stage 5 chronic kidney disease or end stage renal disease; E87.2 Acidosis; F23 Brief psychotic disorder; F03.91 Unspecified dementia, unspecified severity, with behavioral disturbance; E11.22 Type 2 diabetes mellitus with diabetic chronic kidney disease; E87.5 Hyperkalemia; D63.1 Anemia in chronic kidney disease; E88.09 Other disorders of plasma-protein metabolism, not elsewhere classified; Z99.2 Dependence on renal dialysis; Z68.34 Body mass index [BMI] 34.0-34.9, adult; Z79.4 Long term (current) use of insulin; Z79.82 Long term (current) use of aspirin; Z79.899 Other long term (current) drug therapy; Z68.30 Body mass index [BMI] 30.0-30.9, adult
CPT/HCPCS: 36415; 70450; 71045; 80048; 80053; 82962; 85025; 87040; 93005; 93010; 96372; 96374; J0360; J0456; J0696; J1630; J1644; J1815; J1956; J2060; J3486; J7030; J7050